=== PATIENT | male | born 1945 | race Caucasian/White ===

== ENCOUNTER 2022-06-13 12:41 | Emergency (ER) | payer MEDICARE, OTHER, SELFPAY ==
[2022-06-13 13:46] VITALS: BP 118/74; PULSE 76; RESP 18; TEMP 36; O2SAT 93; BMI 37.6
--- NOTE | 2022-06-13 14:13 | ED_ITS ---
HPI - General Adult General Chief complaint: Shoulder Injury/Pain Stated complaint: messed up right shoulder Time Seen by Provider: 06/13/22 13:44 History of Present Illness HPI narrative: This 77-year-old male comes in with right shoulder pain. He states that he moved some furniture at home a couple days ago and since then has had worsening pain in his right shoulder joint. He does not report any particular injury event and prior to this did not have any shoulder condition that gave him trouble. He states that he is unable to raise his arm above 90?. He does not report any other injury. Related Data Home Medications Medication Instructions Recorded Confirmed COVID-19 antigen test (BinaxNOW 06/13/22 06/13/22 COVID-19 Ag Self Test kit) atorvastatin 80 mg tablet mg 06/13/22 blood sugar diagnostic (FreeStyle 06/13/22 06/13/22 Lite Strips) [facility] ([facility] 06/13/22 Lite Meter kit) cetirizine 10 mg tablet mg 06/13/22 empagliflozin 10 mg tablet mg 06/13/22 (Jardiance) empagliflozin 25 mg tablet mg 06/13/22 (Jardiance) furosemide 20 mg tablet mg 06/13/22 glipizide 10 mg tablet, extended mg PO 06/13/22 release 24 hr lancets 28 gauge (FreeStyle 06/13/22 06/13/22 Lancets) losartan 100 mg tablet mg 06/13/22 metformin 1,000 mg tablet mg 06/13/22 metoprolol succinate 50 mg mg PO 06/13/22 tablet,extended release 24 hr sitagliptin 100 mg tablet (Januvia) mg 06/13/22 terazosin 5 mg capsule mg 06/13/22 tramadol 50 mg tablet mg 06/13/22 Previous Rx's Medication Instructions Recorded ketorolac 10 mg tablet 10 mg PO TID 5 Days #15 tab 06/13/22 Allergies Allergy/AdvReac Type Severity Reaction Status Date / Time iodine Allergy Verified 06/13/22 13:46 lisinopril AdvReac Intermediate Cough Verified 06/13/22 13:46 Review of Systems Status of ROS: Reports: 10 or more systems reviewed and unremarkable except as noted in History and below Narrative: Constitutional: No fevers, no weight gain or loss. Eyes: No discharge. No vision changes. HENT: No congestion, no sore throat, no ear pain. Cardiovascular: No chest pain, no palpitations. Respiratory: No shortness of breath, no wheezes, no cough. Gastrointestinal: No abdominal pain, no vomiting, no diarrhea. Genitourinary: No dysuria, no hematuria. Musculoskeletal: Right shoulder pain with decreased range of motion. Skin: No rashes, no pruritis. Neurological: No dizziness, weakness, sensory change, speech change. Endo/Heme/Allergies: No bruising or bleeding. No polydipsia. Pysch: no suicidality, no anxiety, no insomnia. All other systems reviewed and are negative. Exam Narrative: Exam Narrative: Constitutional: Well-developed, well-nourished, no acute distress. HEENT: Normocephalic, atraumatic. Neck: Normal range of motion. Nontender. Supple. Heart: Intact distal pulses. Lungs: No chest discomfort. No wheezes, rhonchi, or rales. Abdomen: Nontender. Back: Normal range of motion. Extremities: Diffuse pain in the right shoulder joint more localized in the anterior aspect. No sign of deformity or joint swelling. Decreased range of m otion with inability to raise his arm above 90?. Empty can sign is positive. Lift-off sign also is positive. He has poor external rotation also. Skin: Intact. No rash. Warm. No erythema or pallor. Neurologic: No altered sensation. No weakness. Alert and oriented. Psychiatric: No suicidality. No anxiety or depression. No insomnia. Nursing notes and vitals signs are reviewed. Const: Vital Signs, click to edit/add: Vital Signs - 24 hr 06/13/22 13:46 Temperature 96.8 F L Pulse Rate [Right Pulse Oximeter] 76 Respiratory Rate 18 Blood Pressure [Le ft Upper Arm] 118/74 Pulse Oximetry 93 Course Vital Signs Vital signs: Initial Vital Signs Temperature 96.8 F L 06/13/22 13:46 Temperature Source Temporal Artery Scan 06/13/22 13:46 Pulse Rate 76 06/13/22 13:46 Respiratory Rate 18 06/13/22 13:46 Blood Pressure 118/74 06/13/22 13:46 Blood Pressure Mean 88 06/13/22 13:46 Blood Pressure Position Sitting 06/13/22 13:46 Pulse Oximetry 93 06/13/22 13:46 Oxygen Delivery Method 06/13/22 13:46 Vital Signs Temperature 96.8 F L 06/13/22 13:46 Pulse Rate 76 06/13/22 13:46 Respiratory Rate 18 06/13/22 13:46 Blood Pressure 118/74 06/13/22 13:46 Pulse Oximetry 93 06/13/22 13:46 Temperature 96.8 F L 06/13/22 13:46 Pulse Rate 76 06/13/22 13:46 Respiratory Rate 18 06/13/22 13:46 Blood Pressure 118/74 06/13/22 13:46 Pulse Oximetry 93 06/13/22 13:46 Medical Decision Making MDM Narrative Medical decision making narrative: This patient comes in with right shoulder pain as described above. He is showing several findings on exam that are suspicious for impingement syndrome or adhesive capsulitis He did not have any specific mechanism of injury that would mandate x-ray or CT imaging at this time. I did discuss the potential benefit of the intra-articular injection of the right shoulder joint which the patient declined at this time. He did receive a sling and a prescription for Toradol. I advised him to follow up with orthopedic clinic if not improving in the next few days or week or so. Discharge Plan Discharge Clinical Impression: Shoulder pain, right Patient Disposition: Home, Self-Care Condition: Unchanged Instructions: Shoulder Pain (ED) Additional Instructions: Wear sling as needed. Take medication also as indicated. Follow up with orthopedic clinic if not improving. Prescriptions: New ketorolac 10 mg tablet 10 mg PO TID 5 Days Qty: 15 0RF No Action atorvastatin 80 mg tablet 0RF cetirizine 10 mg tablet 0RF (DME) FreeStyle Lite Strips Strip MISCELLANEOUS 0RF Label Comments: TEST TWICE DAILY (DME) blood-glucose meter [FreeStyle Lite Meter] Kit MISCELLANEOUS 0RF Label Comments: USE DIRECTED (DME) BinaxNOW COVID-19 Ag Self Test Kit MISCELLANEOUS 0RF Label Comments: TEST DIRECTED TODAY terazosin 5 mg capsule 0RF metoprolol succinate 50 mg tablet extended release 24 hr PO 0RF glipizide 10 mg tablet extended release 24hr PO 0RF tramadol 50 mg tablet 0RF metformin 1,000 mg tablet 0RF furosemide 20 mg tablet 0RF losartan 100 mg tablet 0RF Januvia 100 mg tablet 0RF (DME) lancets [FreeStyle Lancets] 28 gauge misc MISCELLANEOUS 0RF Label Comments: USE TO TEST TWICE DAILY Jardiance 25 mg tablet 0RF Jardiance 10 mg tablet 0RF Follow Up/Referrals: Jeffry Cavazos MD [Primary Care Provider] - Stand Alone Forms: [facility] Info Instructions
== END 2022-06-13 15:17 | disposition home or self-care (01) ==
LOC: ED 14:48
PROVIDERS: Emergency Provider Emergency Medicine Emergency Medical Services; PCP Family Medicine
DX: M25.511 Pain in right shoulder (principal)
CPT/HCPCS: 99283

== ENCOUNTER 2022-08-09 10:48 | Emergency (ER) | payer MEDICARE, OTHER, SELFPAY ==
[2022-08-09 10:55] VITALS: BP 130/70; PULSE 68; RESP 20; TEMP 36.5; O2SAT 97; BMI 37.5
--- NOTE | 2022-08-09 11:15 | CRLHL7_ITS ---
For Patients: As a result of the Cures Act, medical imaging exams and procedure reports are released immediately into your electronic medical record. You may view this report before your referring provider. If you have questions, please contact your health care provider. INDICATION: Acute low back TECHNIQUE: 2-view lumbar spine. COMPARISON: MRI 03/14/2016 FINDINGS: Postop changes of interbody and posterior fusion L4-5. Hardware intact. Disc space narrowing and spurring L3-4 and L2-3. No compression fracture. Dense vascular calcifications in the aorta. Chronic changes at the left SI joint. IMPRESSION: No fracture. Intact hardware. Dictated by Juan Daniel Nunez MD @ 08/09/2022 12:24:41 PM (Electronically Signed)
--- NOTE | 2022-08-09 11:16 | ED_ITS ---
HPI - General Adult General Time Seen by Provider: 11:16 Date Seen: 08/09/22 Chief complaint: Back Injury/Pain Stated complaint: Severe low back pain Time Seen by Provider: 08/09/22 11:04 Source: patient and RN notes reviewed Mode of arrival: ambulatory Limitations: no limitations History of Present Illness HPI narrative: Patient is a 77-year-old male coming in for acute low back pain. He intermittently has been having pain that will sometimes go into either leg but stops at the knee. He feels it goes down the back. He has not had it happened on both legs but does state he has felt that in each leg. There is no numbness tingling. No weakness. No trauma, no fevers. He has had prior back surgery and has had plates put in his back reportedly. He states he was on tramadol for about 4 years but ran out. His primary care doctor whom he tried to reported the get into is on vacation this week. He has tried Tylenol. Denies bowel or bladder issues. Related Data Home Medications Medication Instructions Recorded Confirmed COVID-19 antigen test ([facility] 06/13/22 06/13/22 COVID-19 Ag Self Test kit) atorvastatin 80 mg tablet mg 06/13/22 blood sugar diagnostic (FreeStyle 06/13/22 06/13/22 Lite Strips) [facility] 06/13[facility] L[facility] Meter kit) cetirizine 10 mg tablet mg 06/13/22 empagliflozin 10 mg tablet mg 06/13/22 (Jardiance) empagliflozin 25 mg tablet mg 06/13/22 (Jardiance) furosemide 20 mg tablet mg 06/13/22 glipizide 10 mg tablet, extended mg PO 06/13/22 release 24 hr lancets 28 gauge (FreeStyle 06/13/22 06/13/22 Lancets) losartan 100 mg tablet mg 06/13/22 metformin 1,000 mg tablet mg 06/13/22 metoprolol succinate 50 mg mg PO 06/13/22 tablet,extended release 24 hr sitagliptin 100 mg tablet (Januvia) mg 06/13/22 terazosin 5 mg capsule mg 06/13/22 tramadol 50 mg tablet mg 06/13/22 Previous Rx's Medication Instructions Recorded ketorolac 10 mg tablet 10 mg PO TID 5 days #15 tabs 06/13/22 tramadol 50 mg tablet 50 mg PO Q8H PRN pain #10 tabs 08/09/22 Allergies Allergy/AdvReac Type Severity Reaction Status Date / Time iodine Allergy Verified 06/13/22 13:46 lisinopril AdvReac Intermediate Cough Verified 06/13/22 13:46 Review of Systems Status of ROS: Reports: 6 or more systems reviewed and unremarkable except as noted in History and below [facility] Medical History (Updated 08/09/22 @ 14:05 by Elham Mercado MD) CAD (coronary artery disease) DM (diabetes mellitus), type 2 Social History Smoking Status: Never smoker Do you use any of these nicotine containing products: None Second hand tobacco smoke exposure: No How often do you have a drink containing alcohol: never How often do you have six or more drinks on one occasion: Never AUDIT-C Alcohol total score: 0 Non-prescribed substance use: denies use service: Yes Exam Const: Vital Signs, click to edit/add: Vital Signs - 24 hr 08/09/22 10:55 08/09/22 13:56 Temperature 97.7 F Pulse Rate [Femora l] 68 77 Respiratory Rate 20 Blood Pressure [Ri ght Upper Arm] 130/70 124/59 L Pulse Oximetry 97 97 Oxygen Delivery Me thod Room Air Room Air Documenting provider has reviewed patient's vital signs: yes Common normals: no apparent distress, oriented x3, no limitations, healthy appearing and alert General appearance: cooperative and comfortable HENMT: Common normals: normocephalic, head/scalp atraumatic and hearing grossly normal bilaterally Head and scalp: normocephalic and atraumatic Eye: Common normals: PERRL, EOMs intact bilaterally, conjunctivae normal and no scleral icterus Conjunctiva: conjunctiva(e) normal Pupil: PERRL Neck & C-Spine: Common normals: full ROM, no lymphadenopathy, supple, no meningeal signs, no JVD and thyroid normal Thyroid: thyroid normal Resp: Common normals: normal respiratory effort, no retractions, no use of accessory muscles and clear to auscultation bilaterally Auscultation: clear to auscultation bilaterally Cardio: Common normals: no JVD, regular rate, regular rhythm, S1 normal heart sound, S2 normal heart sound, no gallops, no clicks, no murmurs and no rub Rate: regular rate Rhythm: regular rhythm Heart sounds: S1 normal and S2 normal GI: Common normals: Normal to inspection, nondistended, normoactive bowel sounds present, soft to palpation, non-tender, no hepatosplenomegaly and no masses Palpation: soft and no hepatosplenomegaly Back & Pelvis: Common normals: thoracic and lumbar spine normal to inspection, no thoracic nor lumbar tenderness and straight leg raise negative bilaterally Neuro: Common normals: oriented x3, moves all extremities, no focal motor deficits, no sensory deficits noted and gait normal Sensorium/orientation: alert Meningeal signs: no meningeal signs Course Course Hospital Course: We will proceed with lumbar images, plain films. He is in agreement with this. Once I have the report of the lumbar films, will consider management options. Reevaluation(s) Reevaluation #1: Reviewed with patient his normal lumbar x-ray outside of the hardware. He does state this feels like back pain but did review with him that he has calcifications of his aorta. We did review that the or abuts the posterior aspect of the abdomen. He has not had any abdominal pain per se but has had some atypical pain intermittently into the legs from my history taking. We discussed just doing an ultrasound of the aorta to make sure we were not seen an aneurysm. We went over risks and benefits of not diagnosing an aneurysm. He would like to proceed doing this. He really would like some tramadol for at- home and I did discuss with him I can give him a small prescription of this, he will need to get more from his primary care provider. He declines Tylenol as he states it really has not helped him. He would like to proceed with the ultrasound of his aorta as well. Time: 13:03 Reevaluation #2: Reviewed with patient that the preliminary ultrasound is with out any aneurysm. We discussed use of possible prednisone but he would like to just see how things go. He does not feel like he needs it at this point and he is diabetic which it could increase his sugars. He states he does have a follow-up with his primary care provider. Time: 14:15 Vital Signs Vital signs: Initial Vital Signs Temperature 97.7 F 08/09/22 10:55 Temperature Source Temporal Artery Scan 08/09/22 10:55 Pulse Rate 68 08/09/22 10:55 Pulse Rhythm 08/09/22 10:55 Respiratory Rate 20 08/09/22 10:55 Blood Pressure 130/70 08/09/22 10:55 Blood Pressure Mean 90 08/09/22 10:55 Pulse Oximetry 97 08/09/22 10:55 Oxygen Delivery Method 08/09/22 10:55 Vital Signs Temperature 97.7 F 08/09/22 10:55 Pulse Rate 68 08/09/22 10:55 Respiratory Rate 20 08/09/22 10:55 Blood Pressure 130/70 08/09/22 10:55 Pulse Oximetry 97 08/09/22 10:55 Oxygen Delivery Method 08/09/22 10:55 Temperature 97.7 F 08/09/22 10:55 Pulse Rate 77 08/09/22 13:56 Respiratory Rate 08/09/22 10:55 Blood Pressure 124/59 L 08/09/22 13:56 Pulse Oximetry 97 08/09/22 13:56 Oxygen Delivery Method 08/09/22 13:56 Medical Decision Making Imaging Data Lumbar x-ray: Attestation: I have reviewed the pertinent imaging results. My impression: I do see the hardware on his lumbar films, I do not appreciate any acute pathology but certainly will await Radiology over-read. Radiologist's impression: Patient: VELMA JOHNSON Facility:?[facility] Patient ID:?[id number] Site Patient ID:?[id number]. Site :?[id number] Study:?XRay Spine Lumbar 2 VIEW-08/09/2022 12:20:44 PM Ordering Physician:Lucie Lizarraga Final Report: INDICATION: Acute low back TECHNIQUE: 2-view lumbar spine. COMPARISON: MRI 03/14/2016 FINDINGS: Postop changes of interbody and posterior fusion L4-5. Hardware intact. Disc space narrowing and spurring L3-4 and L2-3. No compression fracture. Dense vascular calcifications in the aorta. Chronic changes at the left SI joint. IMPRESSION: No fracture. Intact hardware. Dictated by Juan Daniel Nunez MD @ 08/09/2022 12:24:41 PM (Electronic Signature) Critical Care Time Critical Care Time Critical Care Time: No Discharge Plan Discharge Clinical Impression: Low back pain Condition: Stable Instructions: Acute Low Back Pain (ED), Chronic Back Pain (DC) Additional Instructions: Please schedule follow-up with your primary care provider. I can only give small number of tramadol for you, take as prescribed. We will be unable to give further pain medicines through the ER. Still recommend taking Tylenol 1000 mg 3 times a day baseline as this may supplement with the tramadol. If you developed increasing pain, your symptoms are progressing, there are any concerns as outlined in the handouts, please seek re-evaluation. Activity Level: Activity as Tolerated Prescriptions: New tramadol 50 mg tablet 50 mg PO Q8H PRN (Reason: pain) Qty: 10 0RF No Action atorvastatin 80 mg tablet cetirizine 10 mg tablet (DME) FreeStyle Lite Strips Strip MISCELLANEOUS Label Comments: TEST TWICE DAILY (DME) blood-glucose meter [FreeStyle Lite Meter] Kit MISCELLANEOUS Label Comments: USE DIRECTED (DME) BinaxNOW COVID-19 Ag Self Test Kit MISCELLANEOUS Label Comments: TEST DIRECTED TODAY terazosin 5 mg capsule metoprolol succinate 50 mg tablet extended release 24 hr PO glipizide 10 mg tablet extended release 24hr PO tramadol 50 mg tablet metformin 1,000 mg tablet furosemide 20 mg tablet losartan 100 mg tablet Januvia 100 mg tablet (DME) lancets [FreeStyle Lancets] 28 gauge misc MISCELLANEOUS Label Comments: USE TO TEST TWICE DAILY Jardiance 25 mg tablet Jardiance 10 mg tablet ketorolac 10 mg tablet 10 mg PO TID 5 Days Qty: 15 0RF Follow Up/Referrals: Jeffry Cavazos MD [Primary Care Provider] - Stand Alone Forms: [employer] Info Instructions
--- NOTE | 2022-08-09 13:02 | CRLHL7_ITS ---
For Patients: As a result of the Century Cures Act, medical imaging exams and procedure reports are released immediately into your electronic medical record. You may view this report before your referring provider. If you have questions, please contact your health care provider. INDICATION: Atypical pain, calcified aorta noted on x-ray. TECHNIQUE: Sonographic evaluation of the abdominal aorta was performed with grayscale and color Doppler. COMPARISON: None. FINDINGS: Abdominal aorta: Torturous and calcified aorta. Abdominal aorta demonstrates normal tapering. Proximal aorta: 2.8 x 2.9 cm. Middle aorta: 2.2 x 2.6 cm. Distal aorta: 2.3 x 2.1 cm. Right Common iliac artery: 1.3 x 1.4 cm Left Common iliac artery: 1.5 x 1.5 cm. IMPRESSION: Tortuous and calcified abdominal aorta which tapers normally. No evidence of aneurysm. Dictated by Johan Bowers MD @ 08/09/2022 2:32:16 PM (Electronically Signed)
[2022-08-09 13:56] VITALS: BP 124/59; PULSE 77; O2SAT 97
== END 2022-08-09 14:20 | disposition home or self-care (01) ==
PROVIDERS: Emergency Provider Family Medicine; PCP Family Medicine
DX: M54.50 Low back pain, unspecified (principal)
CPT/HCPCS: 72100; 76775; 99283; 99284

== ENCOUNTER 2022-11-13 11:00 | Outpatient (RCR) | payer MEDICARE, OTHER, SELFPAY | END 2023-06-20 23:59 | disposition home or self-care (01) | PROVIDERS: PCP Family Medicine; Visit Provider Family Medicine | DX: M54.50 Low back pain, unspecified (principal); Z51.89 Encounter for other specified aftercare | CPT/HCPCS: 97110; 97162 ==

== ENCOUNTER 2023-06-18 08:56 | Emergency (ER) | payer MEDICARE, OTHER, SELFPAY ==
[2023-06-18 09:05] VITALS: BP 105/62; PULSE 76; RESP 18; TEMP 36.2; O2SAT 98; BMI 38.0
--- NOTE | 2023-06-18 09:09 | CRLHL7_ITS ---
For Patients: As a result of the Century Cures Act, medical imaging exams and procedure reports are released immediately into your electronic medical record. You may view this report before your referring provider. If you have questions, please contact your health care provider. INDICATION: Trauma. Fall. Pain. TECHNIQUE: Three views of the left elbow. FINDINGS: Soft tissue swelling about the left elbow particularly near the proximal olecranon. No acute fracture, dislocation, erosion, and no anterior or posterior elbow effusion. IMPRESSION: Soft tissue swelling. The examination is otherwise negative. Dictated by Kenyon Scales MD @ 06/18/2023 9:32:45 AM (Electronically Signed)
--- NOTE | 2023-06-18 09:41 | ED.GENADULT ---
HPI - General Adult General Chief complaint: Extremity Pain/Injury, Upper Stated complaint: fall,left arm pain Time Seen by Provider: 06/18/23 09:02 Source: patient Mode of arrival: ambulatory Limitations: no limitations History of Present Illness HPI narrative: Patient is a 78-year-old male presented emergency department for left elbow pain. He states yesterday he was carrying a kidney is taking step off the curb when he tripped and fell landing on the asphalt. He said he landed on his left elbow in left leg. Denies hitting his head. Patient states since then he has had pain to left elbow with full extension. He is able flex it without issue. He want to make sure there is no fracture a specific came to the emergency department. Denies numbness or weakness. Related Data Home Medications Medication Instructions Recorded Confirmed COVID-19 antigen test (BinaxNOW 06/13/22 06/13/22 COVID-19 Ag Self Test kit) atorvastatin 80 mg tablet mg 06/13/22 blood sugar diagnostic (FreeStyle 06/13/22 06/13/22 Lite Strips) blood-glucose meter (FreeStyle 06/13/22 06/13/22 Lite Meter kit) cetirizine 10 mg tablet mg 06/13/22 empagliflozin 10 mg tablet mg 06/13/22 (Jardiance) empagliflozin 25 mg tablet mg 06/13/22 (Jardiance) furosemide 20 mg tablet mg 06/13/22 glipizide 10 mg tablet, extended mg PO 06/13/22 release 24 hr lancets 28 gauge (FreeStyle 06/13/22 06/13/22 Lancets) losartan 100 mg tablet mg 06/13/22 metformin 1,000 mg tablet mg 06/13/22 metoprolol succinate 50 mg mg PO 06/13/22 tablet,extended release 24 hr sitagliptin phosphate 100 mg mg 06/13/22 tablet (Januvia) terazosin 5 mg capsule mg 06/13/22 tramadol 50 mg tablet mg 06/13/22 Previous Rx's Medication Instructions Recorded ketorolac 10 mg tablet 10 mg PO TID 5 days #15 tabs 06/13/22 tramadol 50 mg tablet 50 mg PO Q8H PRN pain #10 tabs 08/09/22 Allergies Allergy/AdvReac Type Severity Reaction Status Date / Time iodine Allergy Verified 06/13/22 13:46 lisinopril AdvReac Intermediate Cough Verified 06/13/22 13:46 Review of Systems Status of ROS: Reports: 6 or more systems reviewed and unremarkable except as noted in History and below [facility] Medical History DM (diabetes mellitus), type 2 ?E11.9 - Type 2 diabetes mellitus without complications (ICD-10) CAD (coronary artery disease) ?I25.10 - Atherosclerotic heart disease of [place] coronary artery without angina pectoris (ICD-10) Social History Smoking Status: Never smoker Do you use any of these nicotine containing products: None Second hand tobacco smoke exposure: No How often do you have a drink containing alcohol: never How often do you have six or more drinks on one occasion: Never AUDIT-C Alcohol total score: 0 Non-prescribed substance use: denies use service: Yes Exam Narrative: Exam Narrative: Const: Well-nourished, Well-developed, in mild distress Eyes: PERRL, no conjunctival injection, and symmetrical lids ENMT: Atraumatic external nose and ears. Moist mucous membranes. MSK:Extremities w/o deformity, Normal Active ROM, tenderness noted to left elbow Skin: Warm, Dry. Small abrasion that is well healed noted to the elbow moves larger abrasions noted to the left lower leg laterally Neuro: Normal Muscle tone, No focal neurological deficits. Psych: Awake, Alert, & Oriented x3. Appropriate mood and affect. Const: Vital Signs, click to edit/add: Vital Signs - 24 hr 06/18/23 09:05 Temperature 97.2 F L Pulse Rate [Right Pulse Oximeter] 76 Respiratory Rate 18 Blood Pressure [Ri ght Upper Arm] 105/62 Pulse Oximetry 98 Oxygen Delivery Me thod Room Air Course Vital Signs Vital signs: Initial Vital Signs Temperature 97.2 F L 06/18/23 09:05 Temperature Source Temporal Artery Scan 06/18/23 09:05 Pulse Rate 76 06/18/23 09:05 Respiratory Rate 18 06/18/23 09:05 Blood Pressure 105/62 06/18/23 09:05 Blood Pressure Mean 76 06/18/23 09:05 Blood Pressure Position Sitting 06/18/23 09:05 Pulse Oximetry 98 06/18/23 09:05 Oxygen Delivery Method Room Air 06/18/23 09:05 Vital Signs Temperature 97.2 F L 06/18/23 09:05 Pulse Rate 76 06/18/23 09:05 Respiratory Rate 18 06/18/23 09:05 Blood Pressure 105/62 06/18/23 09:05 Pulse Oximetry 98 06/18/23 09:05 Oxygen Delivery Method Room Air 06/18/23 09:05 Temperature 97.2 F L 06/18/23 09:05 Pulse Rate 76 06/18/23 09:05 Respiratory Rate 18 06/18/23 09:05 Blood Pressure 105/62 06/18/23 09:05 Pulse Oximetry 98 06/18/23 09:05 Oxygen Delivery Method Room Air 06/18/23 09:05 Medical Decision Making MDM Narrative Medical decision making narrative: Patient is a 78-year-old male presenting for left elbow pain. He fell yesterday while stepping off a curb on dialysis fall. He does have some abrasions are healing over. Says his tetanus shot is up-to-date. Patient is able to move the elbow but this pain with full extension. He want to come worse or new make sure there was no fractures. He does not want any pain medication at this time. We did an x-ray of the left elbow and shows no acute fractures. There is some soft tissue swelling which was to be expected. He most likely has a contusion. He is otherwise doing well. He will be discharged home. He is agreeable to this plan. Differential Diagnosis Differential Diagnosis: Fracture, contusion, elbow sprain, dislocation Discharge Plan Discharge Clinical Impression: Elbow contusion Qualifiers: Encounter type: initial encounter Laterality: left Qualified Code(s): S50.02XA - Contusion of left elbow, initial encounter Patient Disposition: Home, Self-Care Condition: Stable Instructions: Fall Prevention for Older Adults (ED) Additional Instructions: Follow-up with the primary care provider. Take Tylenol and ibuprofen for pain. Return to the emergency department for new or worsening symptoms. Prescriptions: No Action tramadol 50 mg tablet 50 mg PO Q8H PRN (Reason: pain) Qty: 10 0RF atorvastatin 80 mg tablet cetirizine 10 mg tablet (DME) FreeStyle Lite Strips Strip MISCELLANEOUS Patient Comments: TEST TWICE DAILY (DME) blood-glucose meter [FreeStyle Lite Meter] Kit MISCELLANEOUS Patient Comments: USE DIRECTED (DME) BinaxNOW COVID-19 Ag Self Test Kit MISCELLANEOUS Patient Comments: TEST DIRECTED TODAY terazosin 5 mg capsule metoprolol succinate 50 mg tablet extended release 24 hr PO glipizide 10 mg tablet extended release 24hr PO tramadol 50 mg tablet metformin 1,000 mg tablet furosemide 20 mg tablet losartan 100 mg tablet Januvia 100 mg tablet (DME) lancets [FreeStyle Lancets] 28 gauge misc MISCELLANEOUS Patient Comments: USE TO TEST TWICE DAILY Jardiance 25 mg tablet Jardiance 10 mg tablet ketorolac 10 mg tablet 10 mg PO TID 5 Days Qty: 15 0RF Follow Up/Referrals: Jeffry Cavazos MD [Primary Care Provider] - Stand [facility]one [facility] Info Instructions
== END 2023-06-18 10:13 | disposition home or self-care (01) ==
PROVIDERS: Emergency Provider Student in an Organized Health Care Education/Training Program; PCP Family Medicine
DX: S50.02XA Contusion of left elbow, initial encounter (principal); W01.198A Fall on same level from slipping, tripping and stumbling with subsequent striking against other object, initial encounter
CPT/HCPCS: 73080; 99282; 99283

== ENCOUNTER 2023-09-04 06:43 | Day surgery (SDC) | payer MEDICARE, OTHER, SELFPAY ==
[2023-09-04] MEDS: TETRACAINE 0.5% OPHTH 1 DROP EYE-LEFT ×2 (06:52→07:06)
[2023-09-04] MEDS: KETOROLAC OPHTH 0.5% 1 DROP EYE-LEFT ×3 (06:58→07:19)
[2023-09-04 07:11] VITALS: BMI 39.6
[2023-09-04 07:18] VITALS: BP 129/73; PULSE 87; RESP 20; TEMP 36.3; O2SAT 94
[2023-09-04] MEDS: SODIUM CHLORIDE 0.9 % (FLUSH) 10 ML SYRINGE IVF (07:33)
--- NOTE | 2023-09-04 07:33 | SUR.PREOP ---
The eye drops brought by the patient (Ketorolac and Prednisolone) are examined and I have determined they are labeled by the patient's pharmacy for this patient as prescribed by the surgeon. The bottles are intact, recently obtained and appear to be correct.
--- NOTE | 2023-09-04 07:45 | W.ANESCHARGE ---
Anesthesia Charges Start Date/Time Anesthesia Start Date: 09/04/23 Anesthesia Start Time: 07:52 Stop Date/Time Anesthesia Stop Date: 09/04/23 Anesthesia Stop Time: 08:29 Summary Extremes of Age - Over 70 or under 1: MDA
[2023-09-04] MEDS: TETRACAINE 0.5% OPHTH 2 DROP EYE-LEFT (07:57)
--- NOTE | 2023-09-04 07:57 | W.ANESCHARGE ---
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
[2023-09-04] MEDS: BALANCED SALT IRRIG SOLN 15 ML EYE-LEFT (08:01)
[2023-09-04 08:26] VITALS: BP 120/70; PULSE 70; RESP 20; TEMP 36.8; O2SAT 96
--- NOTE | 2023-09-04 08:34 | P.OPTPRC_ITS ---
Procedure Note Date of procedure: 09/04/23 Will [facility] bill your pro fee for this procedure?: Yes Procedure Description: SURGEON: Milla Rosas MD PREOPERATIVE DIAGNOSIS: Nuclear sclerotic cataract, left eye. POSTOPERATIVE DIAGNOSIS: Nuclear sclerotic cataract, left eye. NAME OF OPERATION: Phacoemulsification of cataract with posterior chamber intraocular lens implantation in the left eye. ANESTHESIA: Topical. ESTIMATED BLOOD LOSS: Less than 2 cc. COMPLICATIONS: None. PATHOLOGY SPECIMEN: None. INDICATIONS: See consult note for details. The risks, benefits and alternatives of the procedure were explained to the patient, who elected to proceed and signed informed consent to do so. PROCEDURE: The patient was brought to the pre-holding area where the left eye was identified as the operative eye. I placed my initials above this eye. The patient received eye drops consisting of 0.5% tetracaine, 1% tropicamide, 10% phenylephrine, and 0.5% ketorolac. The patient was then brought to the operating room where the left eye was again identified as the operative eye. The eye was prepped with Betadine and draped in the usual sterile ophthalmic fashion. A #15 super-sharp blade was used to create a paracentesis site. 1% non-preserved intracameral lidocaine was injected into the anterior chamber. Endocoat was injected into the anterior chamber. A 2.4 mm keratome was used to create a three-plane self-sealing incision 1 mm anterior to the temporal limbus. A cystotome was used to create an anterior capsular leaflet. The Utrata forceps were used to extend this to form a continuous curvilinear capsulorrhexis. Hydrodissection was performed. The cataract was removed with phacoemulsification using the [id number] technique. The irrigation and aspiration tip was used to remove the remaining cortex. Healon was injected into the capsular bag. An MARIBEL ZCB00 intraocular lens of 21.0 diopters was injected into the capsular bag. The irrigation and aspiration tip was used to remove the remaining viscoelastic. Balanced salt solution on a cannula was used to hydrate the wound, and the wound was found to be watertight. The pupil was noted to be round. DISPOSITION: The patient was taken to the recovery room and discharged to home in stable condition. The patient was instructed to call me or go to the emergency department with any sudden change, including dramatic loss of vision, severe pain in the eye or eyebrow region, nausea, or vomiting. The patient will follow up in the clinic tomorrow morning.
== END 2023-09-04 08:47 | disposition home or self-care (01) ==
PROVIDERS: PCP Family Medicine; Visit Provider Ophthalmology
PROC: (CPT 66984; principal; 2023-09-04 06:45)
DX: H25.12 Age-related nuclear cataract, left eye (principal); E11.9 Type 2 diabetes mellitus without complications
CPT/HCPCS: 66984; 00142; 82962; 99100; A9270; J2250; J3010; V2632

== ENCOUNTER 2023-09-18 06:40 | Day surgery (SDC) | payer MEDICARE, OTHER, SELFPAY ==
[2023-09-18] MEDS: TETRACAINE 0.5% OPHTH 1 DROP EYE-RIGHT ×2 (07:12→07:22)
[2023-09-18] MEDS: KETOROLAC OPHTH 0.5% 1 DROP EYE-RIGHT ×3 (07:21→07:37)
[2023-09-18] MEDS: SODIUM CHLORIDE 0.9 % (FLUSH) 10 ML SYRINGE IVF (07:37)
[2023-09-18 07:41] VITALS: BP 121/57; PULSE 71; RESP 16; TEMP 36.5; O2SAT 97; BMI 39.6
--- NOTE | 2023-09-18 07:47 | SUR.OPER ---
Patient has iodine allergy listed, MD approved use for this procedure.
[2023-09-18] MEDS: TETRACAINE 0.5% OPHTH 2 DROP EYE-RIGHT (07:53)
[2023-09-18] MEDS: BALANCED SALT IRRIG SOLN 15 ML EYE-RIGHT (07:57)
[2023-09-18 08:23] VITALS: BP 108/73; PULSE 63; RESP 16; TEMP 36.6; O2SAT 97
--- NOTE | 2023-09-18 08:24 | P.OPTPRC_ITS ---
Procedure Note Date of procedure: 09/18/23 Will [facility] bill your pro fee for this procedure?: Yes Procedure Description: SURGEON: Milla Rosas MD PREOPERATIVE DIAGNOSIS: Nuclear sclerotic cataract, right eye. POSTOPERATIVE DIAGNOSIS: Nuclear sclerotic cataract, right eye. NAME OF OPERATION: Phacoemulsification of cataract with posterior chamber intraocular lens implantation in the right eye. ANESTHESIA: Topical. ESTIMATED BLOOD LOSS: Less than 2 cc. COMPLICATIONS: None. PATHOLOGY SPECIMEN: None. INDICATIONS: See consult note for details. The risks, benefits and alternatives of the procedure were explained to the patient, who elected to proceed and signed informed consent to do so. PROCEDURE: The patient was brought to the pre-holding area where the right eye was identified as the operative eye. I placed my initials above this eye. The patient received eye drops consisting of 0.5% tetracaine, 1% tropicamide, 10% phenylephrine, and 0.5% ketorolac. The patient was then brought to the operating room where the right eye was again identified as the operative eye. The eye was prepped with Betadine and draped in the usual sterile ophthalmic fashion. A #15 super-sharp blade was used to create a paracentesis site. 1% non-preserved intracameral lidocaine was injected into the anterior chamber. Endocoat was injected into the anterior chamber. A 2.4 mm keratome was used to create a three-plane self-sealing incision 1 mm anterior to the temporal limbus. A cystotome was used to create an anterior capsular leaflet. The Utrata forceps were used to extend this to form a continuous curvilinear capsulorrhexis. Hydrodissection was performed. The cataract was removed with phacoemulsification using the [id number] technique. The irrigation and aspiration tip was used to remove the remaining cortex. Healon was injected into the capsular bag. An MARIBEL ZCB00 intraocular lens of 21.5 diopters was injected into the capsular bag. The irrigation and aspiration tip was used to remove the remaining viscoelastic. Balanced salt solution on a cannula was used to hydrate the wound, and the wound was found to be watertight. The pupil was noted to be round. DISPOSITION: The patient was taken to the recovery room and discharged to home in stable condition. The patient was instructed to call me or go to the emergency department with any sudden change, including dramatic loss of vision, severe pain in the eye or eyebrow region, nausea, or vomiting. The patient will follow up in the clinic tomorrow morning.
--- NOTE | 2023-09-18 08:27 | W.ANESCHARGE ---
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
== END 2023-09-18 09:00 | disposition home or self-care (01) ==
LOC: OR 06:40
PROVIDERS: PCP Family Medicine; Visit Provider Ophthalmology
PROC: (CPT 66984; principal; 2023-09-18 06:45)
DX: H25.11 Age-related nuclear cataract, right eye (principal)
CPT/HCPCS: 66984; 00142; 82962; 99100; A9270; J2250; J3010; V2632

== ENCOUNTER 2023-12-18 08:30 | Outpatient (RCR) | payer MEDICARE, OTHER, SELFPAY | END 2024-01-24 09:48 | disposition home or self-care (01) | PROVIDERS: PCP Family Medicine; Visit Provider Family Medicine | DX: R26.81 Unsteadiness on feet (principal); R26.9 Unspecified abnormalities of gait and mobility; R29.6 Repeated falls; Z51.89 Encounter for other specified aftercare | CPT/HCPCS: 97110; 97112; 97162; 97530 ==

== ENCOUNTER 2024-01-10 07:49 | Outpatient (CLI) | payer MEDICARE, OTHER, SELFPAY ==
--- OUTSIDE RECORDS SUMMARY | 2024-01-10 07:51 | XMS_ITS | Clinical Summary ---
Author Name Unknown Organization [facility] Address [place], [place] [address] Care Team Providers Care Director Experimental Medicine Name Role Phone Jeffry Cavazos MD Primary Care Provider Allergies Active Allergy Reactions Criticality Noted Date Comments Cephalexin Rash 12/12/2016 Fish Containing Products Shortness Of Breath,Dyspnea 10/08/2016 Iodine Anaphylaxis,Shortnes s Of Breath High 05/26/2015 Was told not to eat fish Lisinopril Cough 10/10/2016 Medications Medication Sig Dispensed Refills Start Date End Date Status WalkerIndications: Spinal stenosis, lumbar region, without neurogenic claudication Rolling Walker for home use. 1 Device 0 10/13/2016 Active aspirin (ECOTRIN) 81 mg enteric coated tabletIndications: S/P CABG x 3 Take 1 tablet by mouth once daily with a meal. 0 10/30/2016 Active EPINEPHrine (EPIPEN) 0.3 mg/0.3 mL injection Inject 0.3 mg intramuscular. 0 Active polyethylene glycoL (MIRALAX) 17 gram/dose powder Take 17 g by mouth. 0 Active fluorouracil 5% topical (EFUDEX) 5 % cream 0 05/11/2019 Active blood-glucose meterIndications:T ype 2 diabetes mellitus without complication, without long-term current use of insulin (HC) Dispense meter, test strips, lancets covered by pt ins. E11.9 NIDDM type II - Test 2 time/day. High a1c. 1 Each 0 02/14/2022 Active cetirizine (ZYRTEC) 10 mg tabletIndications: Allergy, sequela Take 1 Tablet (10 mg) by mouth once daily. 90 Tablet 3 08/13/2022 Active blood sugar diagnostic (Blood Glucose Test) stripIndications:T ype 2 diabetes mellitus without complication, without long-term current use of insulin (HC) Test two times per day. 200 Each 3 02/25/2023 Active sacubitril-valsart an (ENTRESTO 49 MG-51 MG TABLET) 49-51 mg tabletIndications: Heart failure, unspecified HF chronicity, unspecified heart failure type (HC) Take 1 Tablet by mouth two times daily. 60 Tablet 11 09/02/2023 Active CPAPIndications:OS A on CPAP CPAP machine for home use at pressure 11.4 cm /H2O, Full face mask x1/3month with a full face mask cushion x1/mo 1 Each 11 12/23/2023 Active atorvastatin (LIPITOR) 80 mg tabletIndications: S/P CABG x 3,Dyslipidemia Take 1 Tablet (80 mg) by mouth at bedtime. 90 Tablet 3 01/09/2024 Active empagliflozin (JARDIANCE) 10 mg tabletIndications: Type 2 diabetes mellitus without complication, without long-term current use of insulin (HC) Take 1 Tablet (10 mg) by mouth once daily. 90 Tablet 1 01/09/2024 Active furosemide (LASIX) 20 mg tabletIndications: S/P CABG x 3 Take 1 Tablet (20 mg) by mouth every morning. 90 Tablet 3 01/09/2024 Active glipiZIDE extended-release (GLUCOTROL XL) 10 mg Extended-Release tabletIndications: Type 2 diabetes mellitus without complication, without long-term current use of insulin (HC) Take 2 Tablets (20 mg) by mouth once daily before a meal. 180 Tablet 1 01/09/2024 Active metFORMIN (GLUCOPHAGE) 1,000 mg tabletIndications: Type 2 diabetes mellitus without complication, without long-term current use of insulin (HC) Take 1 Tablet (1,000 mg) by mouth two times daily with meals. 180 Tablet 1 01/09/2024 Active SITagliptin phosphate (JANUVIA) 100 mg tabletIndications: Type 2 diabetes mellitus without complication, without long-term current use of insulin (HC) Take 1 Tablet (100 mg) by mouth once daily. 90 Tablet 1 01/09/2024 Active sotaloL (BETAPACE) 80 mg tabletIndications: PVC (premature ventricular contraction) Take 1 Tablet (80 mg) by mouth two times daily before meals. 0 01/09/2024 Active terazosin (HYTRIN) 5 mg capsuleIndications :Benign non-nodular prostatic hyperplasia with lower urinary tract symptoms Take 1 Capsule (5 mg) by mouth at bedtime. 90 Capsule 3 01/09/2024 Active traMADoL (ULTRAM) 50 mg tabletIndications: Mechanical back pain Take 1 Tablet (50 mg) by mouth 2 times daily if needed for Pain. 60 Tablet 0 01/09/2024 Active naproxen (NAPROSYN) 500 mg tabletIndications: Mechanical back pain Take 1 tablet by mouth every 12 hours if needed. 60 tablet 5 05/19/2020 01/09/2024 Discontinue d(*Med complete/Re gimen complete/Le joni of care change) flash glucose scanning reader (FREESTYLE MENDOZA 10 DAY READER) miscIndications:Ty pe 2 diabetes mellitus without complication, without long-term current use of insulin (HC) As directed. 1 unit 0 05/19/2020 01/09/2024 Discontinue d(*Availabi lity/Formul pedrito change/Cost of medication) flash glucose sensor (FREESTYLE MENDOZA 10 DAY SENSOR) kitIndications:Typ e 2 diabetes mellitus without complication, without long-term current use of insulin (HC) As directed. 6 unit 3 05/19/2020 01/09/2024 Discontinue d(*Availabi lity/Formul pedrito change/Cost of medication) atorvastatin (LIPITOR) 80 mg tabletIndications: S/P CABG x 3,Dyslipidemia Take 1 Tablet (80 mg) by mouth at bedtime. 90 Tablet 3 02/20/2023 01/09/2024 Discontinue d(Reorder (E-cancel not sent)) furosemide (LASIX) 20 mg tabletIndications: S/P CABG x 3 Take 1 Tablet (20 mg) by mouth every morning. 90 Tablet 3 02/20/2023 01/09/2024 Discontinue d(Reorder (E-cancel not sent)) terazosin (HYTRIN) 5 mg capsuleIndications :Benign non-nodular prostatic hyperplasia with lower urinary tract symptoms Take 1 Capsule (5 mg) by mouth at bedtime. 90 Capsule 3 02/20/2023 01/09/2024 Discontinue d(Reorder (E-cancel not sent)) SITagliptin phosphate (JANUVIA) 100 mg tabletIndications: Type 2 diabetes mellitus without complication, without long-term current use of insulin (HC) Take 1 Tablet (100 mg) by mouth once daily. 90 Tablet 2 07/08/2023 01/09/2024 Discontinue d(Reorder (E-cancel not sent)) empagliflozin (JARDIANCE) 10 mg tabletIndications: Type 2 diabetes mellitus without complication, without long-term current use of insulin (HC) Take 1 Tablet (10 mg) by mouth once daily. 90 Tablet 3 08/01/2023 01/09/2024 Discontinue d(Reorder (E-cancel not sent)) glipiZIDE extended-release (GLUCOTROL XL) 10 mg Extended-Release tabletIndications: Type 2 diabetes mellitus without complication, without long-term current use of insulin (HC) Take 2 Tablets (20 mg) by mouth once daily before a meal. 180 Tablet 2 09/02/2023 01/09/2024 Discontinue d(Reorder (E-cancel not sent)) metFORMIN (GLUCOPHAGE) 1,000 mg tabletIndications: Type 2 diabetes mellitus without complication, without long-term current use of insulin (HC) Take 1 Tablet (1,000 mg) by mouth two times daily with meals. 180 Tablet 2 09/02/2023 01/09/2024 Discontinue d(Reorder (E-cancel not sent)) CPAPIndications:OS A on CPAP CPAP machine for home use at pressure 13 cm /H2O, Full face mask x1/3month with a full face mask cushion x1/mo 1 Each 11 09/24/2023 12/23/2023 Discontinue d(Reorder (E-cancel not sent)) sotaloL (BETAPACE) 80 mg tabletIndications: PVC (premature ventricular contraction) Take 1.5 Tablets (120 mg) by mouth two times daily before meals. 270 Tablet 1 10/08/2023 01/09/2024 Discontinue d(*Medicati on adjustment) traMADoL (ULTRAM) 50 mg tabletIndications: Mechanical back pain Take 1 Tablet (50 mg) by mouth 2 times daily if needed for Pain. 60 Tablet 0 12/10/2023 01/09/2024 Discontinue d(Reorder (E-cancel not sent)) Active Problems Patient Care Coordination No te Formatting of this note migh t be different from the original. HF/Structural Research Eligibility Review Date: 09/25/19 Upcoming Visit Location: [facility] Age: 74 y.o. Insurance: Medicare Etiology: ICM NYHA: IV (2016) Last HF Admit: Last RHC: BNP: 1043 10/21/17 EF: 40-45 09/17/19 LVID: 6.1 Valve/Imaging: mod MR Cardiac Devices: Comments: HF: FID: No recent hosp/BNP, EF Guide-HF: No recent hosp/BNP Reduce LAP: No recent hosp/BNP Accucinch 5017: Potential Vivio: No recent/upcoming echo Structural: Alt Anthony: No recent hosp/BNP Prevention: Prominent: no lipids drawn KPL/Rhapsody: No recurrent pericarditis Problem Noted Date Diagnosed Date HFrEF (heart failure with reduced ejection fract ion) 12/23/2023 Sensorineural hearing loss, bilateral 06/25/2023 Type 2 diabetes mellitus wit h other specified complication, without long-term current use of insulin 02/14/2022 Obesity, morbid 02/14/2022 S/P CABG x 3 10/24/2016 Overview: Coronary artery bypass x3; left internal mammary artery to LAD, saphenous vein to obtuse marginal one, saphenous vein to posterior descending branch of right. ?? NSTEMI (non-ST elevated myocardial infarction) 1 12/21/2015 Benign non-nodular prostatic hyperplasia with lower urinary tract symptoms 04/02/2016 Benign essential HTN Dyslipidemia SERVANDO PSG 12/22/2016 AHI-67 EF 40-45% FFM heated ho se Urinary incontinence ASHD (arteriosclerotic heart disease) Postoperative back pain Resolved Problems Problem Noted Date Diagnosed Date Resolved Date Adjustment disorder 01/11/2023 01/09/20 24 Chronic systolic (congestive) heart failure 05/19/2020 02/14/2022 Acute hypoxemic respiratory failure 10/21/2016 05/19/2020 Supraventricular tachycardia 10/21/2016 05/19/2020 Spinal stenosis, lumbar zana on, without neurogenic claudication 10/10/2016 08/22/2022 Urinary frequency 04/02/2016 02/14/2022 Diabetes mellitus 01/09/2024 Postoperative pain 0 Chest wall pain following surgery 05/12/2021 Opioid dependence, continuous 05/19/2020 Encounters Date Type Department Care Team Description 01/09/2024 8:05 AM HAIR CUTTER Office Visit [facility] [place] [address] [facility] [place] [address] Jeffry Cavazos MD Diabetes (4 month follow up) 01/09/2024 Telephone [facility] [place] [address] [place] [address] Jeffry Cavazos MD Follow Up 01/09/2024 Travel 01/03/2024 8:00 AM HAIR CUTTER Orders Only [facility] [place] [address] [place] [address] Lab, [place] Lab 01/03/2024 Travel 12/23/2023 9:00 AM HAIR CUTTER Office Visit [facility] [place] [address] [place] [address] Nitesh Horan MD Follow Up (cpap) 12/23/2023 Travel 12/10/2023 Refill [facility] [place] [address] [place] [address] Jeffry Cavazos MD Refill Request (Tramadol) 11/27/2023 Telephone [facility] [address] [address] Rosemarie Briseno MD Appointment 11/02/2023 Refill [facility] [place] [address] [place] [address] Jeffry Cavazos MD Refill Request (Tramadol) 10/15/2023 10:00 AM HAIR CUTTER Nurse/Clinic Staff Only [facility] [place] [address] [place] [address] Cardiovascular Diagnostic Testing (12 lead EKG ) 10/15/2023 Refill [facility] [place] [address] [place] [address] Jeffry Cavazos MD Refill Request (ultram) 10/15/2023 Travel from Last 3 Months Immunizations Name Administration Dates Next Due COVID-19 vaccine (Linquet NTCorporama 30mcg/0.3mL) 12YO+ BIVALENT PF, MDV 08/22/2022 COVID-19 vaccine (ConfortVisuel-ReNew PowerNTCorporama 30mcg/0.3mL) P F, MDV 02/04/2021,01/14/2021 Influenza Virus, Unspecified 08/10/2021 Influenza, Inactivated AIIV4 (Age 65+ Years) Preserv Free 09/02/2023,08/13/2022 Influenza,CCIIV4 PRESERV FREE 08/01/2020 Pneumococcal Conj 20-valent (Prevnar 20) 023 Pneumococcal Poly,23-Valent (Pneumovax) 12/02/19 13 Pneumococcal conj 13-Valent (Prevnar 13) 015 Tdap 05/28/2018 Zoster (Shingrix-RZV, recombinant) 03/25/2019, Zoster (Zostavax-ZVL, live) 12/02/2012 Family History Medical History Relation Name Comments Stroke Mother Anesthesia Problem No Family History Relation Name Status Comments Mother Social History Tobacco Use Types Packs/Day Years Used Date Smoking Tobacco: Never Smokeless Tobacco: Never Tobacco Cessation:Counseling Given: No Alcohol Use Standard Drinks/Week Comments No 0 (1 standard drink = 0.6 oz pur e alcohol) Occasional - about 10 a year PHQ-2 Answer Date Recorded PHQ-2 TOTAL SCORE 0 09/02/2023 Social Connections Answer Date Recorded Frequency of Communication with Friends and Fami ly 0 01/09/2024 Financial Resource Strain Answer Date R ecorded Difficulty of Paying Living Expenses 3 01/09/2024 Difficulty of Paying Living Expenses Not on file 01/09/2024 Food Insecurity Answer Date Recorded Worried About Running Out of Food in the Last Ye ar 1 01/09/2024 Transportation Needs Answer Date Record ed Lack of Transportation (Medical) 1 01/09/2024 Housing Stability Answer Date Recorded Unable to Pay for Housing in the Last Year 1 01/09/2024 Sex and Gender Information Value Date Recorded Sex Assigned at Not on file Gender Identity Not on file Sexual Orientation Not on file Obstetrics History Last Filed Vital Signs Vital Sign Reading Time Taken Comments Blood Pressure 105/66 01/09/2024 8:05 AM HAIR CUTTER Pulse 88 01/09/2024 8:05 AM HAIR CUTTER Temperature 36.8 ??C (98.3 ??F) 06/20/2021 1 2:55 PM CDT Respiratory Rate 20 06/20/2021 12:5 5 PM CDT Oxygen Saturation 93% 01/09/2024 8:05 AM HAIR CUTTER Inhaled Oxygen Concentration - - Weight 115.5 kg (254 lb 9.6 oz) 01/09/2024 8:05 AM HAIR CUTTER Height 171.3 cm (5' 7.44) 09/24/2023 8:58 AM CD T Body Mass Index 39.36 09/24/2023 8:58 AM CDT Plan of Treatment Upcoming Encounters Date Type Department Care Team (Late st Contact Info) Description 01/10/2024 8:00 AM HAIR CUTTER Ancillary Procedure [facility] [address] [place] [address] 01/29/2024 9:00 AM HAIR CUTTER Office Visit [facility] [place] [address] [place] [address] Timo Turcios DPM [address] [place] [address] 02/04/2024 1:00 PM HAIR CUTTER Office Visit [facility] [address] [place] [address] Gabriel Payne MD [address] [address] 02/20/2024 8:15 AM CDT Orders Only [facility] [place] [address] [place] [address] Lab, [place] 03/31/2024 9:00 AM CDT Office Visit [facility] [place] [address] [place] [address] Nitesh Horan MD [address] [place] [address] 07/09/2024 8:30 AM CDT Office Visit [facility] [place] [address] [place] [address] Jeffry Cavazos MD [address] [place] [address] Health Maintenance Due Date Last Done Comments Depression screening for age 12+ 09/02/2024 09/02/2023, 09/02/2023, 09/02/2023, Additional history exists Medicare Wellness for age 65+ 09/02/2024 09/02/2023, 08/22/2022 BMI (ht and wt on same day) for age 18+ 09/24/2024 09/24/2023, 09/02/2023, 09/02/2023, Additional history exists Tetanus booster 05/28/2028 05/28/2018 Tdap Completed 05/28/2018 Zoster (shingles) series for age 50+ Completed 03/25/2019, 01/20/2019, 12/02/2012 Hepatitis C screening for ag e 18-79 Completed 08/20/2022 Pneumococcal series for age 65+ Completed 02/20/2023, 08/29/2015, 12/02/2012 Influenza for age 65+ Completed 09/02/2023 , 08/13/2022, 08/10/2021, Additional history exists COVID-19 vaccine series Completed 10/19/20, 08/22/2022, 03/01/2022, Additional history exists Medical Devices Implanted Type Area Whale Fisherman Device Identifier Shelf Expiration Date Model / Serial / Lot [id number] 1-4mm 30cc Medtronic Chips Canclls Freeze Dried Implanted:Qty: 1 on 10/10/2016 by Jesika Falcon MD at [facility] Explanted:at [facility] (Quantity not on file) N/A: Spine Medtronic Spine/Ortho 06/13/2021 [id number]# / [id number] / Spacer Lmbr [id number] 0deg Avs Unilif - [id number] Implanted:Qty: 1 on 10/10/2016 by Jesika Falcon MD at [facility] N/A: Spine [place]rick Spine [id number] / / Screw Lmbr Post 6.5x45mm Trio Va Std - [id number] Implanted:Qty: 4 on 10/10/2016 by Jesika Falcon MD at [facility] N/A: Spine Kenrick Spine [id number] / / Rodrigo Lmbr 40mmx3.5in Claudia Ii Radius - [id number] Implanted:Qty: 2 on 10/10/2016 by Jesika Falcon MD at [facility] N/A: Spine [place] Spine [id number] / / Cnnctr Lmbr Sm Trio Offset - [id number] Implanted:Qty: 4 on 10/10/2016 by Jesika Falcon MD at [facility] N/A: Spine [place] Spine [id number] / / Procedures Procedure Name Priority Date/Time Associated Diagnosis Comments BASIC METABOLIC PANEL Routine 01/03/2024 7:56 AM HAIR CUTTER Type 2 diabetes mellitus without complication, without long-term current use of insulin (HC) HEMOGLOBIN A1C Routine 01/03/2024 7:56 AM HAIR CUTTER Type 2 diabetes mellitus without complication, without long-term current use of insulin (HC) FERRITIN Routine 01/03/2024 7:56 AM HAIR CUTTER Iron deficiency anemia, unspecified iron deficiency anemia type IRON PLUS IRON BINDING CAP Routine 01/03/2024 7:56 AM HAIR CUTTER Iron deficiency anemia, unspecified iron deficiency anemia type EKG 12 LEAD Routine 10/15/2023 10:21 AM HAIR CUTTER Congestive heart failure, unspecified HF chronicity, unspecified heart failure type (HC) PVC (premature ventricular contraction) from Last 3 Months Results * (ABNORMAL) IRON PLUS IRON BINDING CAP (01/03/2024 7:56 AM HAIR CUTTER) IRON 38(L) 61 - 157 ug/dL 01/03/2024 3:39 PM HAIR CUTTER [facility] UIBC (UNSATURATED) 256 112 - 347 ug/dL 01/03/2024 3:39 PM HAIR CUTTER [facility] IRON BINDING CAPACITY 294 250 - 400 ug/dL 01/03/2024 3:39 PM HAIR CUTTER [facility] IRON,% SATURATION 13(L) 14 - 50 % 01/03/2024 3:39 PM HAIR CUTTER [facility] Blood BLOOD SPECIMEN / Unknown Venipuncture / Unknown 01/03/2024 7:56 AM HAIR CUTTER 01/03/2024 7:59 AM HAIR CUTTER Jeffry Cavazos MD CHEMISTRY Performing Organization Address [facility] Co de Phone Number [facility] [address] [place] [id number], [place] * (ABNORMAL) HEMOGLOBIN A1C MONITORING (POCT) (01/03/2024 7:56 AM HAIR CUTTER) HEMOGLOBIN A1C MONITORING (POCT) 7.5(H) <=6.4 % 01/03/2024 8:19 AM HAIR CUTTER [facility] Blood BLOOD SPECIMEN / Unknown Venipuncture / Unknown 01/03/2024 7:56 AM HAIR CUTTER 01/03/2024 7:59 AM HAIR CUTTER Narrative [facility] - 01/03/2024 8:19 AM HAIR CUTTER ? (<=6.9%) ? Indicates good control ? (7.0% to 7.9%) ? Indicates fair control ? (>=8.0%) ? Indicates poor control ?? NOTE: ??These thresholds are guidelines and ?individual targets may vary. Falsely low levels may be seen with: Recent Transfusion, Recent Significant Blood Loss, Hemolytic Diseases, or Falsely elevated levels may be seen with: Untreated Anemias, Splenectomy ? Jeffry Cavazos MD CHEMISTRY Performing Organization Address City/[facility]/ZIP Co de Phone Number [facility] [address] [place] [address], [place] [phone] * (ABNORMAL) FERRITIN (01/03/2024 7:56 AM HAIR CUTTER) FERRITIN 25.5(L) 30.0 - 400.0 ng/mL 01/03/2024 3:39 PM [facility] Blood BLOOD SPECIMEN / Unknown Venipuncture / Unknown 01/03/2024 7:56 AM HAIR CUTTER 01/03/2024 7:59 AM HAIR CUTTER Jeffry Cavazos MD CHEMISTRY [facility] [address] [place] [phone], * (ABNORMAL) BASIC METABOLIC PANEL (01/03/2024 7:56 AM HAIR CUTTER) SODIUM 140 136 - 145 mmol/L 01/03/2024 3:39 PM [facility] POTASSIUM 4.6 3.5 - 5.1 mmol/L 01/03/2024 3:39 PM [facility] CHLORIDE 103 98 - 107 mmol/L 01/03/2024 3:39 PM [facility] CO2,TOTAL 26 22 - 29 mmol/L 01/03/2024 3:39 PM [facility] ANION GAP 11 5 - 18 01/03/2024 3:39 PM [facility] GLUCOSE 166(H) 70 - 99 mg/dL 01/03/2024 3:39 PM [facility] CALCIUM 9.1 8.8 - 10.2 mg/dL 01/03/2024 3:39 PM [facility] BUN 17 8 - 23 mg/dL 01/03/2024 3:39 PM [facility] CREATININE 0.91 0.70 - 1.20 mg/dL 01/03/2024 3:39 PM [facility] BUN/CREAT RATIO 19 10 - 20 3:39 PM [facility] eGFR 86(L) >90 mL/min/1.7 3m2 01/03/2024 3:39 PM [facility] Comment:As of 2022, eG FR is calculated by the CKD-EPI creatinine equation without race adjustment. ??eGFR can be influenced by muscle mass, exercise, and diet. ??The reported eGFR is an estimation only and is only applicable if the renal function is stable. Blood BLOOD SPECIMEN / Unknown Venipuncture / Unknown 01/03/2024 7:56 AM HAIR CUTTER 01/03/2024 7:59 AM HAIR CUTTER Jeffry Cavazos MD [facility] [address] [place] [phone], * EKG 12 LEAD (10/15/2023 10:21 AM HAIR CUTTER) Ramone Obregon MD EKG ORD from Last 3 Months Advance Directives Latest Code Status on File Code Status Date Activated Date Inactivated Comments Full Code 10/23/2016 1:18 PM 10/30/2016 3:19 PM Code Status History Code Status Date Activated Date Inactivated Comments Full Code 10/21/2016 5:51 PM 10/23/2016 1:17 PM Question Answer Comments Code Status Discussion: Discussed Full Code 10/10/2016 10:45 AM 10/13/2016 4:20 PM Full Code 10/10/2016 5:19 AM 10/10/2016 10:45 AM Care Teams Director Experimental Medicine Relationship Specialty Start Date End Date Jeffry Cavazos MD [address] [place] [address] PCP - General Family Practice 05/17/20
--- OUTSIDE RECORDS SUMMARY | 2024-01-10 07:52 | XMS_ITS | Continuity of Care Document ---
Author Name [facility] Organization [facility] Care Team Providers Care Sales/Marketing Name Role Phone [facility] Unavailable Unavailable Problems Combined list of problems from Department of Defense and Veterans Affairs facilities. It does not include entries that were removed or entered in error. 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 Condition DoD bladder outlet obstruction Active Condition DoD bph local w/o urinary obstruct w/ other low urinary tract sx Active Condition DoD gross hematuria Active Condition DoD vitamin D deficiency Active Condition D oD vitamin B12 deficiency Active Condition DoD cystitis Inactive Condition DoD microscopic hematuria Active Condition DoD back strain lumbar Inactive Condition Do D Patient Education Active Condition DoD obesity Active Condition 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 DoD joint pain, localized in the knee Active Condition DoD hypogonadism Active Condition DoD snoring Active Condition DoD back strain Inactive Condition DoD acute bronchitis Inactive Condition DoD upper respiratory infection Inactive Condition 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 DoD posterior vitreous detachment both eyes Active Condition DoD routine ophthalmological exam Inactive Condition DoD nephrolithiasis Active Condition DoD Patient Counseling: Active Condition Do D hematuria Active Condition DoD Need For Vaccination Against Single Disease Active Condition DoD allergic rhinitis Active Condition DoD sinusitis acute Active Condition DoD presbyopia Active Condition DoD astigmatism regular Active Condition Do D refractive error - hypermetropia Active Condition DoD vertigo Inactive Condition DoD bronchitis Inactive Condition DoD overweight Active Condition DoD Macules And Papules Inactive Condition D oD visit for: pre-employment physical Inactive Condition DoD benign prostatic hypertrophy Active Condition DoD pain during urination (dysuria) Active Condition DoD routine history and physical adult (18 - 64 yrs) Active Condition 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 May have interaction due to beta na, but obviously will use only if an emergency. He has a card that says he is allergic to seafood in macanese that he uses whenever he goes out to eat. Followup as needed. DoD tinnitus subjective Active Condition Do D sensory hearing loss Active Condition Tympanograms WNL, AU. High frequency SNHL, AU. DoD visit for: ears / hearing exam Inactive Condition DoD vertigo Inactive Condition DoD tinnitus right ear Active Condition DoD diabetes mellitus type 2 Active Condition I have advised the patient to diet and exercise to gain better control of his blood pressure and cholesterol his diabetic control is adequate. DoD essential hypertension Active Condition Initial blood pressure elevated, but repeated manually much better--althabner domingo would not want him to carry that for long period. Since he just switched blood pressure medications, and he will only be here for six weeks, will defer any changes until he returns to [place]. I advised him to followup with his physician at that time. He agreed with that plan. 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 Repeat colonoscopy for screening as previously recommended. DoD visit for: screening malignant neoplasm colon Inactive Condition Avg risk, R/B/A discussed, patient would like to proceed with colonosocpy. ASA II. DoD Mixed hyperlipidemia Active Condition D oD diabetes mellitus Active Condition DoD pharyngitis acute Inactive Condition DoD glossodynia Active Condition DoD backache Inactive Condition DoD pain in upper arms Inactive Condition Do D limb pain Inactive Condition DoD chronic cough Active Condition DoD male erectile disorder due to physical condition Active Condition DoD Medications Combined list of outpatient medications from Department of Defense and Veterans Affairs facilities.Medications provided include 1) outpatient medications from the last 15 months, and 2) patient-reported medications. Medication Details Route Status Patient Instructions Prescription Expires Prescription Number Last Dispense Date Ordering Provider Order Date Source ATORVASTATI N CALCIUM (atorvastat in calcium), 80 MG, TABLET, ORAL, [employer] 500 ea. BOTTLE Active [id number] 4 2023 Pharmac y Data Transac tion Service Facilit y FREESTYLE LITE TEST STRIP (blood sugar diagnostic) , STRIP, MISCELL, LITTLE DIABETES, 50 ea. BOX Active [id number] 4 2023 Pharmac y Data Transac tion Service Facilit y FUROSEMIDE (furosemide ), 20 MG, TABLET, ORAL, [employer], 1000 ea. BOTTLE Active [id number] 4 2023 Pharmac y Data Transac tion Service Facilit y JANUVIA (SITAGLIPTI N PHOSPHATE), 100MG, TABLET, ORAL, [employer] 90 ea. BOTTLE Active [id number] 4 2023 Pharmac y Data Transac tion Service Facilit y METOPROLOL SUCCINATE (metoprolol succinate), 50 MG, TAB ER 24H, ORAL, [employer] 1000 ea. BOTTLE Active [id number] 4 2023 Pharmac y Data Transac tion Service Facilit y SOTALOL (SOTALOL HCL), 80MG, TABLET, ORAL, APOTEX NGUYEN, 100 ea. BOTTLE Active [id number] 4 2023 Pharmac y Data Transac tion Service Facilit y TERAZOSIN HCL (TERAZOSIN HCL), 5MG, CAPSULE, ORAL, [employer], 1000 ea. BOTTLE Active [id number] 4 2023 Pharmac y Data Transac tion Service Facilit y TRAMADOL HCL (tramadol HCl), 50 MG, TABLET, ORAL, [employer] 500 ea. BOTTLE Active [id number] 4 2023 Pharmac y Data Transac tion Service Facilit y Allergies, Adverse Reactions, Alerts Combined list of allergies from Department of Defense and Veterans Affairs facilities. It does not include entries that were removed or entered in error. 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 Immunization Series Date Given Administered By Site Reaction Lot Number CVX Code Drug Oracle Adf Developer Status Comments Source COVID-19, mRNA, LNP-S, PF, 30 mcg/0.3 mL dose, ju-sucrose [address] [facility], () Not Given COVID-19, mRNA, LNP-S, PF, 30 mcg/0.3 mL dose, ju-sucr ose [facility] Influenza vaccine, quadrivalent, adjuvanted 2020 [facility], () Not Given Influenza vaccine, quadrival ent, adjuvante d DoD Influenza, injectable, MDCK, preservative free, quadrivalent 2019 [facility], () Not Given Influenza , injectabl e, MDCK, preservat nina free, quadrival ent DoD zoster vaccine, live 1 2008 Unknown, Provider [id number] Merck (MSD) complet ed zoster vaccine, live DoD measles, mumps and rubella virus vaccine 1 2007 Unknown, Provider [id number] Merck (MSD) complet ed measles, mumps and rubella virus vaccine DoD tuberculin skin test; purified protein derivative solution, intradermal 1 2007 Unknown, Provider [id number] [place] (PD) complet ed tuberculi n skin test; purified protein derivativ e solution, intraderm al DoD poliovirus vaccine, inactivated 1 2007 Unknown, Provider [id number] Sanofi Pasteur (PMC) complet ed polioviru s vaccine, inactivat ed DoD hepatitis A and hepatitis B vaccine 1 2007 Unknown, Provider [id number] [address] (SKB) complet ed hepatitis A and hepatitis B vaccine DoD tetanus toxoid, reduced diphtheria toxoid, and acellular pertu is vaccine, adsorbed 2007 Unknown, Provider [id number] Sanofi Pasteur (PMC) complet ed tetanus toxoid, reduced diphtheri a toxoid, and acellular pertussis vaccine, adsorbed DoD Encounters Combined list of: 1) Encounters from Department of Veterans Affairs facilities going back up to thelast 18 months. 2) Encounters from the Department of Defense facilities going back up to 280 months. Location Location Details Encounter Type Encounter Number Reason For Visit Attending Provider ADM Date DC Date Status Disposition Source [place] OUTPATIENT [id number] F/U MEDICAT ION CHANGE DARLINE PRINCE 09/08 Released w/o Limitations [place] [place]) OUTPAT[place] [id number] LOWER BACK PAIN HOLLY DUNHAM 12/21 Released [place] Limitations [place] [place]) OUT[place] [id number] SORE THROAT ETTA GUTIÉRREZ 03/15 Released [place] Limitations [place]) OUT[place] [id number] PHYSCIA DARLINE HA 05/28 Released [place] Lim[place] [id number] DIABETE S MELLITU S WITHOUT MENTION OF COMPLIC ATION, TYPE II [NON-IN SULIN DEPEND DWAYNE DAN 06/29 Released [place] Limitations [place] TELE CONSULT [id number] DWAYNE DAN 07/16 [place] TELE CONSULT [id number] NCC triage: hand injury KAITY LINDSAY 04/24 [place] TELE CONSULT [id number] NCC triage: triage for hand injury KAITY LINDSAY 04/24 [place] OUT[place] [id number] f/u meds DARLINE PRINCE 05/20 Rele[place] Lim[place] [place] OUT[place] [id number] f/u med discuss ion- 15 prior PATRICIA DENNIS 10/22 Rele[place] Lim[place] [place] [id number] f/u lab results /15 min PATRICIA DENNIS 11/20 [place] Lim[place] OUT[place] [id number] back pain- 15 min/imc /med list DENNIS PATRICIA Multani 02/26 [place] Lim[place] [place]) OUT[place] [id number] f\u on blood pressur e- 20 pr- int- 1st ak PATRICIA DENNIS 03/31 [place] Lim[place] OUT[place] [id number] F/U LAB RESULTS /IMC/20 /MED LIST VELMA ZARATE Yg 09/05 Rele[place] Lim[place] OUTPAT[place] [id number] ringing in ears rx list 15pr ОЛЬГА APARICIO 12/12 [place] Lim[place]) [place] [id number] audiogr LETY Archer 12/24 [place] Limitations [place] [employer]([facility]) OUTPATIENT [id number] discuss allergy /epi pen ERIKA BROWNE 01/22 Released w/o Limitations [employer](F amily Practic e Clinic) [place] OUTPATIENT [id number] DOT juliaa macarena for out of countyr employm VANDANA Elkins 03/20 Released w/o Limitations [place] [employer]([facility] OUTPATIENT [id number] possibl e kidney stone SKINNY IBRAHIM 04/20 Released w/o Limitations [employer](U rgent Care Clinic) [employer](Urg ent Care Clinic) OUTPATIENT [id number] f/u UTI SKINNY TAN 04/30 Released w/o Limitations [employer](U rgent Care Clinic) [place] [id number] F/U MEDS& LABS/ PCM NOT AVAIL/C TD/MEDS IRAJ SINGER 06/10 Released [place] Limitations [place] [employer](Aer omedical Services) OUTPATIENT [id number] pre employm ent FERNANDO ANGELA Macarena 08/18 Released w/o Limitations [employer](A eromedi griffin Service s) [employer](Int ernal Medicine Clinic) OUTPATIENT [id number] new DWAYNE Gustafson 10/25 Released w/o Limitations [employer](I nternal Medicin e Clinic) [employer](Urg ent Care Clinic) OUTPATIENT [id number] body aches SKINNY TAN 11/01 Released w/o Limitations [employer](U rgent Care Clinic) [employer](Int ernal Medicine Clinic) OUTPATIENT [id number] fu meds/la DWAYNE Brown 11/11 Released w/o Limitations [employer](I nternal Medicin e Clinic) [employer](Int ernal Medicine Clinic) TELE CONSULT [id number] rx DWAYNE Dacosta 11/12 [employer](I nternal Medicin e Clinic) [employer](Urg ent Care Clinic) OUTPATIENT [id number] dizzy LEVON, JUDY 12/03 Released w/o Limitations [employer](U rgent Care Clinic) [employer](Int ernal Medicine Clinic) OUTPATIENT [id number] dizzine DWAYNE Gipson 12/06 Released w/o Limitations [employer](I nternal Medicin e Clinic) [employer](Int ernal Medicine Clinic) OUTPATIENT [id number] F/u diabete DWAYNE Saleem 02/09 Released w/o Limitations [employer](I nternal Medicin e Clinic) [employer](Opt ometry Clinic) OUTPATIENT [id number] DIABETE S SHAMAITU S TIALJ RennerCAMILLA Fisher 03/24 Released w/o Limitations [employer](O ptometr y Clinic) [employer](Opt ometry Clinic) TELE CONSULT [id number] consult report DWAYNE LOUIS 03/24 [employer](O ptometr y Clinic) [employer](Urg ent Care Clinic) OUTPATIENT [id number] sob SKINNY TAN 04/02 Released w/o Limitations [employer](U rgent Care Clinic) [employer](Int ernal Medicine Clinic) TELE CONSULT [id number] Hyperli pidemia DWAYNE LOUIS 04/10 [employer](I nternal Medicin e Clinic) [employer](Int ernal Medicine Clinic) OUTPATIENT [id number] blood pressur e/diabe tic check DWAYNE LOUIS 04/17 Released w/o Limitations [employer](I nternal Medicin e Clinic) [place]PATIENT [id number] zoster NADEEM COLÓN 07/11 Released w/o Limitations [place] [employer](Int ernal Medicine Clinic) OUTPATIENT [id number] F/u diabete DWAYNE Saleem 08/29 Released w/o Limitations [employer](I nternal Medicin e Clinic) [employer](Int ernal Medicine Clinic) TELE CONSULT [id number] hematur ia DWAYNE LOUIS 08/31 [employer](I nternal Medicin e Clinic) [employer](Int ernal Medicine Clinic) TELE CONSULT [id number] lab result DWAYNE LOUIS 11/07 [employer](I nternal Medicin e Clinic) [employer](Int ernal Medicine Clinic) TELE CONSULT [id number] lab results DWAYNE LOUIS 12/07 [employer](I nternal Medicin e Clinic) [employer](Int ernal Medicine Clinic) OUTPATIENT [id number] DM / prostat itis DWAYNE LOUIS 12/15 Released w/o Limitations [employer](I nternal Medicin e Clinic) [employer](Opt ometry Clinic) OUTPATIENT [id number] MENDY LEBLANC 01/24 Released w/o Limitations [employer](O ptometr y Clinic) [employer](Int ernal Medicine Clinic) OUTPATIENT [id number] temp, cough, sore throat, dizzy DWAYNE LOUIS 04/03 Released w/o Limitations [employer](I nternal Medicin e Clinic) [employer](Int ernal Medicine Clinic) OUTPATIENT [id number] poss vertigo DWAYNE LOUIS 04/27 Released w/o Limitations [employer](I nternal Medicin e Clinic) [employer](Int ernal Medicine Clinic) TELE CONSULT [id number] DM appt for Diabete s LETY WYNN 10/09 [employer](I nternal Medicin e Clinic) [employer](Int ernal Medicine Clinic) OUTPATIENT [id number] congest ion, cough, sore throat DWAYNE LOUIS 10/17 Released w/o Limitations [employer](I nternal Medicin e Clinic) [employer](Int ernal Medicine Clinic) OUTPATIENT [id number] f/u labs DWAYNE LOUIS 01/03 Released w/o Limitations [employer](I nternal Medicin e Clinic) [employer](Opt ometry Clinic) OUTPATIENT [id number] DIABETE S MELLITU S TYPE 2 showtim e 1300 KAREN TAMEZ 01/05 Released w/o Limitations [employer](O ptometr y Clinic) [employer](Urg ent Care Clinic) OUTPATIENT [id number] L-side Abdomin al pain ANGELA JONES 03/29 Released w/o Limitations [employer](U rgent Care Clinic) [employer](Int ernal Medicine Clinic) OUTPATIENT [id number] f/u for labs and diabete s check 15 min DWAYNE LOUIS 04/04 Released w/o Limitations [employer](I nternal Medicin e Clinic) [employer](Int ernal Medicine Clinic) TELE CONSULT [id number] Low testost erone DWAYNE LOUIS 04/15 [employer](I nternal Medicin e Clinic) [employer](Int ernal Medicine Clinic) OUTPATIENT [id number] f/u for meds DWAYNE LOUIS 04/23 Released w/o Limitations [employer](I nternal Medicin e Clinic) [employer](Int ernal Medicine Clinic) OUTPATIENT [id number] lft knee pain DWAYNE LOUIS 05/03 Released w/o Limitations [employer](I nternal Medicin e Clinic) [employer](Int ernal Medicine Clinic) TELE CONSULT [id number] DWAYNE VELEZ 05/09 [employer](I nternal Medicin e Clinic) [employer](Int ernal Medicine Clinic) TELE CONSULT [id number] a1c due/ord CARLEY Young 06/14 Released to Self Care [employer](I nternal Medicin e Clinic) [employer](Int ernal Medicine Clinic) OUTPATIENT [id number] f/u for diabete s 15 min prior TIA, CATINA Kinney 08/20 Released w/o Limitations [employer](I nternal Medicin e Clinic) [employer](Int ernal Medicine Clinic) OUTPATIENT [id number] back issues 15 min prior TIACATINA 09/12 Released w/o Limitations [employer](I nternal Medicin e Clinic) [employer](Int ernal Medicine Clinic) TELE CONSULT [id number] med refill TIACATINA 10/29 [employer](I nternal Medicin e Clinic) [employer](Urg ent Care Clinic) OUTPATIENT [id number] I have a UTI JENELLE MONTENEGRO 11/16 Released w/o Limitations [employer]([facility]) [employer](Urg ent Care Clinic) OUTPATIENT [id number] Notes Entered by: Arleen PELAYO 25 Dec 2011 1847 ------- ------- ------- ------- -- I think I have a kidney stone ZANDER SMALL Yg 12/25 Released w/o Limitations [employer]([facility]) [employer]([facility]) OUTPATIENT [id number] urine issues 15 CATINA GARCIA 01/16 Released w/o Limitations [employer] [employer]([facility]) TELE CONSULT [id number] uti CARLEY DELATORRE 01/23 Referred for Appointment [employer](I nternal Medicin e Clinic) [employer]([facility]) OUTPATIENT [id number] Notes Entered by: Jaspal ARZOLA 13 Feb 2012 1407 ------- ------- ------- ------- -- B12 injecti on AB YANGN 02/12 Released w/o Limitations [employer] [employer]([facility]) OUTPATIENT [id number] Notes Entered by: Jaspal ARZOLA 17 Mar 2012 0803 ------- ------- ------- ------- -- B12 JANINE HORTON 03/16 Released w/o Limitations [employer](I nternal Medicin e Clinic) [facility]) TELE CONSULT [id number] Notes Entered by: CARLEY DELATORRE 19 Mar 2012 1348 ------- ------- ------- ------- -- Med refill CARLEY DELATORRE 03/19 Referred for Appointment [employer]) OUTPATIENT [id number] Notes Entered by: Jaspal ARZOLA 10 Apr 2012 0929 ------- ------- ------- ------- -- B12 injecti on MITZY WOODS 04/10 Released w/o Limitations [employer](I nternal Medicin e Clinic) [employer](Opt ometry Clinic) OUTPATIENT [id number] DFE annual Diabeti c REE/ refer by MENDY Benz 04/16 Released w/o Limitations [employer](O ptometr y Clinic) [employer](Int ernal Medicine Clinic) OUTPATIENT [id number] f/u 15m CATINA GARCIA 05/07 Released w/o Limitations [employer](I nternal Medicin e Clinic) [employer](Int ernal Medicine Clinic) OUTPATIENT [id number] Notes Entered by: Nirmal TORRES 16 May 2012 1136 ------- ------- ------- ------- -- B12 shot AB YANG 05/16 Released w/o Limitations [employer](I nternal Medicin e Clinic) [employer](Int ernal Medicine Clinic) OUTPATIENT [id number] Notes Entered by: RHYS FRAUSTO 29 Jul 2012 1122 ------- ------- ------- ------- -- B-12 CARLEY DELATORRE 07/29 Released w/o Limitations [employer](I nternal Medicin e Clinic) [employer](Int ernal Medicine Clinic) OUTPATIENT [id number] f/u labs 15m CATINA GARCIA 08/06 Released w/o Limitations [employer](I nternal Medicin e Clinic) [employer]([facility] Team A) OUTPATIENT [id number] Notes Entered by: KACIE CONSTANTINO 25 Sep 2012 1138 ------- ------- ------- ------- -- B12 injecti on MITZY WOODS 09/25 Released w/o Limitations [employer](Nirmal huizar [facility] Team A) [employer](Int ernal Medicine Clinic) TELE CONSULT [id number] Notes Entered by: DESTIN QUINTERO 25 Sep 2012 1240 ------- ------- ------- ------- -- NEW BLOOD MACHINE CATINA GARCIA 09/25 [facility](I nternal Medicin e Clinic) [facility]) OUTPATIENT [id number] Notes Entered by: VELMA WOLF 03 Nov 2012 0834 ------- ------- ------- ------- -- Flu SX ANGELA JONES 11/02 Sick at Home/Quarter s [employer]([facility]) [facility](Int ernal Medicine [facility]) OUTPATIENT [id number] F/U LABS CATINA GARCIA 11/12 Released w/o Limitations [facility](I nternal Medicin e Clinic) [facility] Medical [facility](Int ernal Medicine [facility]) OUTPATIENT [id number] poss kidney infecti on CATINA GARCIA 01/21 Released w/o Limitations [facility](I nternal Medicin e Clinic) [facility] Medical [facility](Int ernal Medicine [facility]) OUTPATIENT [id number] f/u labs adn scripts CATINA GARCIA 03/30 Released w/o Limitations [facility](I nternal Medicin e [facility]) [facility] Medical [facility](Uro logy Clinic) OUTPATIENT [id number] H/O BPH, NEPHROL ITHIASI S, MICROSC OPIC HEMATUR IA MERCY IBANEZ 04/12 Released w/o Limitations [facility] Medical [facility](U rology Clinic) [facility] Medical [facility](Uro logy Clinic) OUTPATIENT [id number] MERCY IBANEZ 04/16 Released w/o Limitations [facility](U rology Clinic) [facility] Medical [facility](Int ernal Medicine Clinic) OUTPATIENT [id number] f/u urology CATINA GARCIA 04/17 Released w/o Limitations [facility](I nternal Medicin e Clinic) [place] OUTPATIENT [id number] Notes Entered by: Jud TILLEY 23 Apr 2013 1255 ------- ------- ------- ------- -- CYSTO NARAYANBULMARO MARTINEZMO E 04/23 Released w/o Limitations [place]) [place] OUTPATIENT [id number] Notes Entered by: JOSELYN REYNA 28 Apr 2013 0848 ------- ------- ------- ------- -- preop NARAYANSTEPHANYCHANI E 04/28 Released w/o Limitations [place] TELE CONSULT [id number] Notes Entered by: Rangel BECK 06 May 2013 1339 ------- ------- ------- ------- -- Adminis trative purpose WILBER Padilla 05/06 [place]) OUTPATIENT [id number] f/u post op TURP CHANI NARAYAN E 05/08 Released w/o Limitations [place] OUTPATIENT [id number] Notes Entered by: Rangel BECK 22 Jun 2013 0757 ------- ------- ------- ------- -- CPAP Complia ncWILBER Roque 06/22 Released w/o Limitations [place] [facility](Int ernal Medicine Clinic) OUTPATIENT [id number] CATINA PAREKH 08/19 Released w/o Limitations [facility] [employer](I nternal Medicin e Clinic) [facility](Opt ometry Clinic) OUTPATIENT [id number] annual diabeti c eye exam ROBYN MONTANA 08/25 Released w/o Limitations [facility] [employer](O ptometr y Clinic) [facility](Aer omedical Services) OUTPATIENT [id number] diabete s class DIAMANTE PATRICIA 10/08 Released w/o Limitations [employer] [employer]([facility]) [facility](Int ernal Medicine Clinic) OUTPATIENT [id number] fever, congest ion x 2 days CATINA GARCIA 11/02 Released w/o Limitations [facility](I nternal Medicin e Clinic) [facility](Int ernal Medicine Clinic) OUTPATIENT [id number] F/U UROLOGY CATINA GARCIA 12/16 Released w/o Limitations [facility](I nternal Medicin e Clinic) [facility](Uro logy Clinic) OUTPATIENT [id number] Notes Entered by: RAMY LUCAS 07 Jan 2014 0751 ------- ------- ------- ------- -- MER[facility] Sol 01/06 Released w/o Limitations [facility](U rology Clinic) [facility](Uro logy Clinic) OUTPATIENT [id number] [facility] IBANEZ 01/08 Released w/o Limitations [facility](U rology Clinic) [facility]([facility] [facility] Team A) OUTPATIENT [id number] sinus infecti on JEAN-CLAUDE JAVED L 01/12 Released w/o Limitations [facility](Nirmal huizar [facility] Team [facility]) [facility](Int ernal Medicine Clinic) OUTPATIENT [id number] SINUS INFECTI ON CATINA GARCIA 01/29 Released w/o Limitations [facility](I nternal Medicin e Clinic) [facility] [employer](Aer omedical Services) OUTPATIENT [id number] Notes Entered by: DIAMANTE PATRICIA 01 Mar 2014 1350 ------- ------- ------- ------- -- DM seminar DIAMANTE PATRICIA 03/01 Released w/o Limitations [employer]([facility]) [facility](Opt ometry Clinic) OUTPATIENT [id number] REE/césar ual diabeti c ROBYN MONTANA 03/15 Released w/o Limitations [facility](O ptometr y Clinic) [facility](Int ernal Medicine Clinic) OUTPATIENT [id number] f/u CATINA Bernal 05/03 Released w/o Limitations [facility](I nternal Medicin e Clinic) [place]) OUTPATIENT [id number] CYSTOSC OPY CHANI NARAYAN E 05/18 Released w/o Limitations [place] OUTPATIENT [id number] Notes Entered by: AAYUSH TERRELL 25 May 2014 1218 ------- ------- ------- ------- -- FPCHANI CHAUDHARI 05/25 Released w/o Limitations [place] [facility](Urg ent Care Clinic) OUTPATIENT [id number] Notes Entered by: NICOLE MACARIO 09 Nov 2014 1239 ------- ------- ------- ------- -- Med refill MARJ NIELSEN 11/09 Released w/o Limitations [facility](U rgent Care Clinic) [facility](Int ernal Medicine Clinic) OUTPATIENT [id number] medicat ion refill CHUCHO LOPEZ 11/15 Released w/o Limitations [facility](I nternal Medicin e Clinic) [facility](Int ernal Medicine Clinic) TELE CONSULT [id number] Notes Entered by: CHUCHO LOPEZ 21 Dec 2014 0805 ------- ------- ------- ------- -- med CHUCHO LOPEZ 12/20 [facility](I nternal Medicin e Clinic) [facility](Int ernal Medicine Clinic) TELE CONSULT [id number] Notes Entered by: CHUCHO LOPEZ 22 Dec 2014 1343 ------- ------- ------- ------- -- med JESSICA CHUCHO T 12/22 [facility](I nternal Medicin e Clinic) [facility](Opt ometry Clinic) OUTPATIENT [id number] eyeex GERALDO PAEZ 12/22 Released w/o Limitations [facility](O ptometr y Clinic) [facility]([facility] Team B) OUTPATIENT [id number] flu like symptom s PATRICIA JOHNSON Phillip 03/14 Released w/o Limitations [facility] [facility]([place] [facility] Team B) [facility](Opt ometry Clinic) OUTPATIENT [id number] ROBYN Cuenca 03/23 Released w/o Limitations [facility](O ptometr y Clinic) [facility](Int ernal Medicine Clinic) OUTPATIENT [id number] f/u medicat ion JESSICA CHUCHO T 04/11 Released w/o Limitations [facility](I [facility]ternal Medicin e Clinic[place]) [place] [id number] f/u urinary symptom s post turp CHANI NARAYAN E 06/21 Released w/[place] Limitations [place]) [place] [id number] penile pain CHANI NARAYAN E 11/02 Released [place] Limitations [place] [id number] Notes Entered by: DANE MARTINEZ 30 Nov 2015 1156 ------- ------- ------- ------- -- BACK PAIN ( *[facility] LUZ ELENA SORTO 11/30 Released [place] Limitations [place]) [place] [id number] CYSTOSC OPY CHANI NARAYAN E 12/28 Released w[place] Limitations [place] [id number] FLOW CHANI NARAYAN E 07/12 Rele[place] Limitations [place] [id number] UDS FLOW CHANI NARAYAN E 07/13 Released w[place] Limitations [place] [id number] Notes Entered by: JOSELYN JOHNSON 16 Jul 2016 0956 ------- ------- ------- ------- -- PREOP TURP CHANI NARAYAN E 07/16 Released [place] Limitations [place] [id number] Notes Entered by: MENDY RIVAS 23 Jul 2016 1025 ------- ------- ------- ------- -- FPV CHANI NARAYAN E 07/23 Released w/o Limitations [place]) [place] [id number] Urology /wait list/ct d CHANI NARAYAN E 03/15 Released w/o Limitations [place] Procedures Combined list of: 1) Procedures from Department of Veterans Affairs facilities going back up to thelast 18 months, not all VA non-surgical procedures are included; 2) All procedures from the Department of Defense facilities. Procedure Procedure Type Code Date Perfomer Comments Sourc e Instillation Of Therapeutic Agent Into Bladder Instillation Of Therapeutic Agent Into Bladder 72431 017 CHANI NARAYAN E DoD Diagnostic Cystoscopy Diagnostic Cystoscopy 01379 017 CHANI NARAYAN E Danielle Diagnostic Cystoscopy Diagnostic Cystoscopy 32205 016 CHANI NARAYAN Yg Santos Complex Bladder Cystometrogram With Voiding Pre ure Studies Complex Bladder Cystometrogram With Voiding Pressure Studies 90376 016 CHANI NARAYAN EMG Of Anal/Urethral Sphincter (Other Than Needle) EMG Of Anal/Urethral Sphincter (Other Than Needle) 79846 016 CHANI NARAYAN Measuremt Post-Voiding Resid Urine, Bladder Capacity Ultrasd Measuremt Post-Voiding Resid Urine, Bladder Capacity Ultrasd 58775 016 CHANI NARAYAN Complex Bladder Flow Rate Studies Complex Bladder Flow Rate Studies 16508 016 CHANI NARAYAN Diagnostic Cystoscopy Diagnostic Cystoscopy 43288 016 CHANI NARAYAN Measuremt Post-Voiding Resid Urine, Bladder Capacity Ultrasd Measuremt Post-Voiding Resid Urine, Bladder Capacity Ultrasd 22611 015 CHANI NARAYAN Complex Bladder Flow Rate Studies Complex Bladder Flow Rate Studies 99361 015 CHANI NARAYAN Spectacles Services Fitting Multifocal Except For Aphakia Spectacles Services Fitting Multifocal Except For Aphakia 29674 015 ROBYN MONTANA Determination Of Refractive State Determination Of Refractive State 36435 015 ROBYN MONTANA Ophthalmological Prior Patient Start Comprehensive Care Ophthalmological Prior Patient Start Comprehensive Care 92397 015 ROBYN MONTANA Diabetic indicator; retinal eye exam, dilated, bilateral 015 ROBYN MONTANA Diabetic indicator; retinal eye exam, dilated, bilateral 015 GERALDO PAEZ Determination Of Refractive State Determination Of Refractive State 34092 015 GERALDO PAEZ Ophthalmological Prior Patient Start Comprehensive Care Ophthalmological Prior Patient Start Comprehensive Care 95284 015 GERALDO PAEZ Urethral Catheterization Indwelling (Fabian) Urethral Catheterization Indwelling (Fabian) 03338 014 CHANI NARAYAN Pt here for catheter removal. Pt has _22_French Fabian catheter with a 30__cc balloon. Pt was infused with 100___cc of normal saline. Cath removed, Pt voided 116___cc of urine. Pt was instructed to follow up per Providers instruction. Danielle Diagnostic Cystoscopy Diagnostic Cystoscopy 15694 014 NARAYAN, CHANI E [facility] Diabetic indicator; retinal eye exam, dilated, bilateral 014 ROBYN MONTANA [facility] Determination Of Refractive State Determination Of Refractive State 05890 014 ROBYN MONTANA [facility] Ophthalmological Prior Patient Start Comprehensive Care Ophthalmological Prior Patient Start Comprehensive Care 43208 014 ROBYN MONTANA [facility] Physician Supervised Group Educational Services Physician Supervised Group Educational Services 30223 014 DIAMANTE PATRICIA [facility] Diagnostic Cystoscopy Diagnostic Cystoscopy 54897 014 MERCY IBANEZ [facility] Measuremt Post-Voiding Resid Urine, Bladder Capacity Ultrasd Measuremt Post-Voiding Resid Urine, Bladder Capacity Ultrasd 26481 014 MERCY IBANEZ [facility] Physician Supervised Group Educational Services Physician Supervised Group Educational Services 37193 013 DIAMANTE PATRICIA [facility] Determination Of Refractive State Determination Of Refractive State 87303 013 ROBYN MONTANA [facility] Ophthalmological Prior Patient Start Comprehensive Care Ophthalmological Prior Patient Start Comprehensive Care 87508 013 ROBYN MONTANA [facility] Diabetic indicator; retinal eye exam, dilated, bilateral 013 ROBYN MONTANA [facility] Bladder Flow Rate Studies Bladder Flow Rate Studies 56046 013 NARAYANSTEPHANY MARTINEZCHANI E [facility] Cytology Cytology 73312 013 NARAYANSTEPHANY MARTINEZCHANI E [facility] Diagnostic Cystoscopy Diagnostic Cystoscopy 87665 013 NARAYANSTEPHANY MARTINEZCHANI Yg [facility] Diagnostic Cystoscopy Diagnostic Cystoscopy 78828 013 MERCY IBANEZ [facility] Physician Supervised Injection Intramuscular Physician Supervised Injection Intramuscular 32068 012 MITZY WOODS [facility] Physician Supervised Injection Intramuscular Physician Supervised Injection Intramuscular 95675 012 CARLEY DELATORRE [facility] Vitamin Levels Serum Vitamin B12 (Cobalamin) Vitamin Levels Serum Vitamin B12 (Cobalamin) 43343 012 AB YANG [facility] Physician Supervised Injection Intramuscular Physician Supervised Injection Intramuscular 74792 012 AB YANG Diabetic indicator; retinal eye exam, dilated, bilateral 012 MENDY JOHNSON Determination Of Refractive State Determination Of Refractive State 20352 012 MENDY JOHNSON Ophthalmological Prior Patient Start Comprehensive Care Ophthalmological Prior Patient Start Comprehensive Care 88500 012 MENDY JOHNSON Physician Supervised Injection Intramuscular Physician Supervised Injection Intramuscular 69520 012 MITZY WOODS Physician Supervised Injection Intramuscular Physician Supervised Injection Intramuscular 44361 012 JANINE HORTON Pt agreed to, vu and compliance of medication. received 1000mcg B12 into L deltoid. Pt declined band-aid placement over inj site. Pt ashely proc well, left ambulatory per self. DoD Physician Supervised Injection Intramuscular Physician Supervised Injection Intramuscular 09254 012 AB YANG Determination Of Refractive State Determination Of Refractive State 91178 011 KAREN TAMEZ Ophthalmological Prior Patient Start Comprehensive Care Ophthalmological Prior Patient Start Comprehensive Care 99315 011 KAREN TAMEZ Spectacles Services Fitting Bifocal Except For Aphakia Spectacles Services Fitting Bifocal Except For Aphakia 33713 010 MENDY JOHNSON Diabetic indicator; retinal eye exam, dilated, bilateral 010 MENDY JOHNSON Determination Of Refractive State Determination Of Refractive State 56218 010 MENDY JOHNSON Ophthalmological Prior Patient Start Comprehensive Care Ophthalmological Prior Patient Start Comprehensive Care 05742 010 MENDY JOHNSON Zoster Vaccine Live Zoster Vaccine Live 55821 0 009 MIKE NEVAREZ Immunization Administration By Injection, One Vaccine Immunization Administration By Injection, One Vaccine 89452 009 MIKE NEVAREZ Diabetic indicator; retinal eye exam, dilated, bilateral 009 LISA RAMOS Determination Of Refractive State Determination Of Refractive State 96562 009 LISA RAMOS Ophthalmological New Patient Start Comprehensive Care Ophthalmological New Patient Start Comprehensive Care 60271 009 LISA RAMOS ECG Interpretation And Report Only ECG Interpretation And Report Only 59000 009 JUDY DOS SANTOS Blood Glucose Random Blood Glucose Random 06941 009 JUDY DOS SANTOS 152 FS [facility] Intravenous Catheter Placement Intravenous Catheter Placement 92455 008 SKINNY IBRAHIM 20 guage right hand [facility] Venipuncture Venipuncture 49113 008 SKINNY IBRAHIM [facility] Infusion, normal saline solution , 1000 cc 008 SKINNY IBRAHIM times one (NS 1000 ml) [facility] Acoustic Reflex Testing 008 LETY BENNETT [facility] Tympanometry Tympanometry 59111 008 LETY BENNETT Comprehensive Audiometry Comprehensive Audiometry 76346 008 LETY BENNETT DoD FITTING OF SPECTACLES, EXCEPT FOR APHAKIA; MULTIFOCAL, OTHER THAN BIFOCAL 015 DoD DIABETIC INDICATOR; RETINAL EYE EXAM, DILATED, BILATERAL 015 DoD DIABETIC INDICATOR; RETINAL EYE EXAM, DILATED, BILATERAL 014 DoD PHYS/OTH QUALIFIED HEALTH RN ER QUALIFIED,EDUCATION,T RAIN,LICENSURE/REGULA TION (WHEN APPLICABLE) EDUC SER RENDERED TO PATS IN A GRP SETTING (EG,,OBESITY, OR DIABETIC INSTRUCT) 014 DoD CYSTOURETHROSCOPY (SEPARATE PROCEDURE) 014 DoD MEASUREMENT OF POST-VOIDING RESIDUAL URINE AND/OR BLADDER CAPACITY BY ULTRASOUND, NON-IMAGING 014 [facility] PHYS/OTH QUALIFIED HEALTH RN ER QUALIFIED,EDUCATION,T RAIN,LICENSURE/REGULA TION (WHEN APPLICABLE) EDUC SER RENDERED TO PATS IN A GRP SETTING (EG,,OBESITY, OR DIABETIC INSTRUCT) 013 DoD DETERMINATION OF REFRACTIVE STATE 013 DoD CYSTOURETHROSCOPY (SEPARATE PROCEDURE) 013 DoD THERAPEUTIC, PROPHYLACTIC, OR DIAGNOSTIC INJECTION (SPECIFY SUBSTANCE OR DRUG); SUBCUTANEOUS OR INTRAMUSCULAR 012 DoD THERAPEUTIC, PROPHYLACTIC, OR DIAGNOSTIC INJECTION (SPECIFY SUBSTANCE OR DRUG); SUBCUTANEOUS OR INTRAMUSCULAR 012 DoD CYANOCOBALAMIN (VITAMIN B-12); 012 DoD DIABETIC INDICATOR; RETINAL EYE EXAM, DILATED, BILATERAL 012 DoD THERAPEUTIC, PROPHYLACTIC, OR DIAGNOSTIC INJECTION (SPECIFY SUBSTANCE OR DRUG); SUBCUTANEOUS OR INTRAMUSCULAR 05/10/2 012 DoD THERAPEUTIC, PROPHYLACTIC, OR DIAGNOSTIC INJECTION (SPECIFY SUBSTANCE OR DRUG); SUBCUTANEOUS OR INTRAMUSCULAR [facility] THERAPEUTIC, PROPHYLACTIC, OR DIAGNOSTIC INJECTION (SPECIFY SUBSTANCE OR DRUG); SUBCUTANEOUS OR INTRAMUSCULAR [facility] DETERMINATION OF REFRACTIVE STATE DoD DIABETIC INDICATOR; RETINAL EYE EXAM, DILATED, BILATERAL DoD DETERMINATION OF REFRACTIVE STATE DoD GLUCOSE; QUANTITATIVE, BLOOD (EXCEPT REAGENT STRIP) DoD INTRODUCTION OF NEEDLE OR INTRACATHETER, VEIN DoD INSTILLATION(S) OF THERAPEUTIC AGENT INTO RENAL PELVIS AND/OR URETER THROUGH ESTABLISHED NEPHROSTOMY, PYELOSTOMY OR URETEROSTOMY TUBE (EG, ANTICARCINOGENIC OR ANTIFUNGAL AGENT) 017 [facility] INJECTION, ONABOTULINUMTOXINA, 1 UNIT [facility] CYSTOURETHROSCOPY (SEPARATE PROCEDURE) [facility] COMPLEX CYSTOMETROGRAM (IE, CALIBRATED ELECTRONIC EQUIPMENT); WITH VOIDING PRESSURE STUDIES (IE, BLADDER VOIDING PRESSURE), ANY TECHNIQUE [facility] CYSTOURETHROSCOPY (SEPARATE PROCEDURE) [facility] COMPLEX UROFLOWMETRY (EG, CALIBRATED ELECTRONIC EQUIPMENT) [facility] INSERTION OF TEMPORARY INDWELLING BLADDER CATHETER; SIMPLE (EG, FABIAN) [facility] UNLISTED SPECIAL SERVICE, PROCEDURE OR REPORT [facility] CYSTOURETHROSCOPY (SEPARATE PROCEDURE) [facility] POSTOPERATIVE FOLLOW-UP VISIT, NORMALLY INCLUDED IN THE SURGICAL PACKAGE, INDICATE THAT EVALUATION & MANAGEMENT SERVICE WAS PERFORMED DURING A POSTOPERATIVE PERIOD REASON RELATED ORIGINAL PROCEDURE [facility] UNLISTED SPECIAL SERVICE, PROCEDURE OR REPORT [facility] CYSTOURETHROSCOPY (SEPARATE PROCEDURE) [facility] SIMPLE UROFLOWMETRY (UFR) (EG, STOP-WATCH FLOW RATE, MECHANICAL UROFLOWMETER) [facility] ZOSTER (SHINGLES) VACCINE (HZV), LIVE, FOR SUBCUTANEOUS INJECTION [facility] ACOUSTIC REFLEX TESTING, THRESHOLD [facility] COLONOSCOPY, FLEXIBLE; WITH BIOPSY, SINGLE OR MULTIPLE [facility] FUNDUS PHOTOGRAPHY WITH INTERPRETATION AND REPORT [facility] DETERMINATION OF REFRACTIVE STATE [facility] FUNDUS PHOTOGRAPHY WITH INTERPRETATION AND REPORT 002 [facility] FUNDUS PHOTOGRAPHY WITH INTERPRETATION AND REPORT 001 [facility] PNEUMOCOCCAL POLYSACCHARIDE VACCINE, 23-VALENT (PPSV23), ADULT OR IMMUNOSUPPRESSED PATIENT DOSAGE, WHEN ADMINISTERED TO INDIVIDUALS 2 YEARS OR OLDER, FOR SUBCUTANEOUS OR INTRAMUSCULAR USE 998 [facility] Social History Combined list of available smoking, tobacco, and other social history from Department of Defense and Veterans Affairs facilities. Social History Type Response Date Comment Sour e This section is an empty social history section. DoD
[2024-01-10] MEDS: PERFLUTREN LIPID MICROSPHERES 2 ML VIAL IV (09:56)
== END 2024-01-10 07:50 | disposition home or self-care (01) ==
LOC: RAD 07:49
PROVIDERS: PCP Family Medicine; Visit Provider Internal Medicine
DX: I50.9 Heart failure, unspecified (principal)
CPT/HCPCS: 93308; 93321; 93325; Q9957

== ENCOUNTER 2024-11-09 07:30 | Outpatient (RCR) | payer MEDICARE, OTHER, SELFPAY | END 2024-12-25 11:21 | disposition home or self-care (01) | PROVIDERS: PCP Family Medicine; Visit Provider Family Medicine | DX: R26.81 Unsteadiness on feet (principal); M62.81 Muscle weakness (generalized); Z51.89 Encounter for other specified aftercare | CPT/HCPCS: 97110; 97112; 97161; 97530 ==